=== PATIENT | female | born 1960 | race Caucasian/White ===

== ENCOUNTER 2019-01-27 22:27 | Inpatient (IN) | payer BC, OTHER ==
[2019-01-27] MEDS ORDERED: METOCLOPRAMIDE HCL INJECTION 10 MG/2 ML VIAL IVPB ONE (23:59)
[2019-01-27] MEDS ORDERED: ACETAMINOPHEN 1000 MG/100 ML VIAL (NON FORMULARY) IVPB ONE (23:59)
--- NOTE | 2019-01-28 00:07 | PDOC ---
History of Present Illness - General Chief Complaint: Nausea/Vomiting Stated Complaint: FEVER/VOMITING Time Seen by Provider: 01/27/19 23:52 History Source: Patient, Family Exam Limitations: No Limitations - History of Present Illness Initial Comments: 01/28/19 00:00 [id number] with HTN and HLD who p/w many episodes of NBNB vomiting and dry heaves ( states >20 episodes in the past 2 days, unable to keep anything down now), head- to-toe body aches, throbbing headache, vague abdominal pain, and mild burning on urination for the past 2 days. She states she had similar symptoms about 10 years ago and was diagnosed with a UTI. She initially believed she had eaten something rotten at a [employer], but nobody else got sick from eating this food. She additionally has been having subjective fever and sweats at home. She denies diarrhea, black/bloody/white stool, cough, SOB, chest pain, or other symptoms. Past History - Past Medical History Allergies/Adverse Reactions: Allergies Allergy/AdvReac Type Severity Reaction Status Date / Time No Known Allergies Allergy Verified 01/27/19 22:36 Home Medications: Ambulatory Orders Lisinopril 01/28/19 Simvastatin 01/28/19 COPD: No HTN: Yes Seizures: Yes - Suicide/Smoking/Psychosocial Hx Smoking History: Current every day smoker Have you smoked in the past 12 months: Yes Number of Cigarettes Smoked Daily: 10 Information on smoking cessation initiated: No Hx Alcohol Use: No Drug/Substance Use Hx: No Review of Systems - Review of Systems Able to Perform ROS?: Yes Comments:: 01/28/19 00:11 GEN: fever, chills, sweats, malaise, generalized weakness, no weight change HEENT: no ear pain, sore throat, vision change, or eye pain CV: no chest pain, palpitations, lightheadedness, syncope, or edema RESP: no cough, wheezing, or SOB GI: abdominal pain, nausea, vomiting, diarrhea, no constipation, or white/black/ bloody stool : dysuria, no hematuria, incontinence, retention, bleeding, or discharge MSK: no neck/back pain, muscle weakness/pain, or joint swelling/pain NEURO: headache, no seizure, vertigo, numbness, tingling, or focal weakness PSYCH: no substance use, no behavior change SKIN: no jaundice, no rash ROS otherwise negative except as noted in HPI *Physical Exam - Vital Signs Last Vital Signs Temp Pulse Resp BP Pulse Ox 98.3 F 100 H 19 143/99 100 01/27/19 22:34 01/27/19 22:34 01/27/19 22:34 01/27/19 22:34 01/27/19 22:34 - Physical Exam Comments: 01/28/19 00:12 GENERAL: a bit uncomfortable-appearing, A/Ox4, appears tired, answers questions appropriately, at bedside is supportive, emesis bag at side but not actively vomiting HEENT: PERRLA, EOMI, moist mucous membranes NECK/BACK: no midline ttp, no spinal stepoff or deformity, no hematoma, full ROM , neck supple CARDIOVASCULAR: regular rate/rhythm, normal S1S2, no MGR, strong peripheral pulses, capillary refill <2 seconds, extremities wwp, no edema LUNGS/RESPIRATORY: no respiratory distress, CTAB GI/ABDOMEN: symmetric [id number], normoactive BS, soft, no ttp, no midline pulsatile masses : no CVA tenderness EXTREMITIES: no muscle atrophy, no acute deformity SKIN: warm and dry, no pallor, no jaundice, no rash, no bruising, no skin breakdown, no cuts, no lesions NEUROLOGICAL: GCS 15, CN II-XII grossly intact, 5/5 strength proximally and distally, no facial droop Heart Score/ECG Review #1 01/28/19 00:17 Sinus rhythm, rate 89, normal axis, QTc 491, TAMELA in aVR, STD in II, III, aVF, and anterolateral leads ED Treatment Course - LABORATORY CBC & Chemistry Diagram: 01/28/19 00:40 01/28/19 00:40 Medical Decision Making - Medical Decision Making 01/28/19 00:08 Adult Pt p/w epigastric abdominal pain. Initial Vital Signs Temp Pulse Resp BP Pulse Ox 98.3 F 100 H 19 143/99 100 01/27/19 22:34 01/27/19 22:34 01/27/19 22:34 01/27/19 22:34 01/27/19 22:34 Exam: As noted in Physical Exam section. DDX IBNLT: most likely viral syndrome or influenza or UTI, less likely any other infectious etiology such as cholecystitis, choledocholithiasis, cholangitis, pancreatitis, appendicitis, gastritis, PUD, colitis, AAA/AD, ACS, renal stone, SBO, mesenteric/bowel ischemia, bowel perforation, constipation, gas, etc W/U ordered: Labs as noted below, EKG CXR TX ordered: David Ferraro [facility] 01/28/19 00:40 EKG actually appears concerning for ACS. ASA is ordered immediately, but RN states there is none in the ED, going to pharmacy to obtain. On probing the patient does note pain slightly increased in chest from 01/28/19 01:30 stated he is leaving the ED to go home and he will come back in the morning. I told him we still do not know the status of the patient's illness and whether or not she is having a serious cardiac event. He understands this and understands that she may end up being transferred to another facility or admitted. I have given him the ED phone number and he states he has given his own number to Dr. Dumont. Laboratory Tests 01/28/19 01/28/19 01/28/19 00:40 00:40 00:40 WBC 13.3 H RBC 5.96 H Hgb 16.6 H Hct 48.8 H MCV 81.8 MCH 27.9 MCHC 34.0 RDW 14.3 Plt Count 286 MPV 8.7 Absolute Neuts (auto) 10.5 H Neutrophils % 79.0 Lymphocytes % 12.7 Monocytes % 7.6 Eosinophils % 0.1 Basophils % 0.6 Nucleated RBC % 0 PT with INR INR Sodium 133 L Potassium 3.3 L Chloride 98 Carbon Dioxide 25 Anion Gap 10 BUN 17.8 Creatinine 0.6 Est GFR (CKD-EPI)AfAm 117.27 Est GFR (CKD-EPI)NonAf 101.18 Random Glucose 112 H Calcium 9.5 Phosphorus 2.5 Magnesium 2.3 Total Bilirubin 0.6 AST 12 L ALT 15 Alkaline Phosphatase 92 Troponin I 0.30 H Total Protein 7.9 Albumin 4.1 Influenza A (Rapid) Influenza B (Rapid) 01/28/19 01/28/19 00:40 00:40 WBC RBC Hgb Hct MCV MCH MCHC RDW Plt Count MPV Absolute Neuts (auto) Neutrophils % Lymphocytes % Monocytes % Eosinophils % Basophils % Nucleated RBC % PT with INR 12.40 INR 1.05 Sodium Potassium Chloride Carbon Dioxide Anion Gap BUN Creatinine Est GFR (CKD-EPI)AfAm Est GFR (CKD-EPI)NonAf Random Glucose Calcium Phosphorus Magnesium Total Bilirubin AST ALT Alkaline Phosphatase Troponin I Total Protein Albumin Influenza A (Rapid) Negative Influenza B (Rapid) Negative 01/28/19 01:53 Reassessment: Patient resting in ED stretcher with lights out. Cardiology on-call is paged at this time. 01/28/19 02:[address] Marquez on-call with Cardiology, transmitted EKG. Recommends getting second troponin, and if it is uptrending then tx with heparin. 01/28/19 02:24 The Pts symptoms persist despite ED treatments. The Pt is unsafe for discharge at this time. They require further hospital observation, workup, and treatment. Microblog sent to [facility] for admission. Blank Decision to Admit order is placed per ED protocol. Repeat EKG appears improved, repeat troponin not significantly elevated from initial. I spoke with Dr. Martínez with [facility]; patient admitted to Dr. Mccartney. Vital Signs Temperature 98.3 F 01/27/19 22:34 Pulse Rate 78 01/28/19 03:24 Respiratory Rate 12 01/28/19 03:24 Blood Pressure 152/94 01/28/19 03:24 O2 Sat by Pulse Oximetry (%) 99 01/28/19 03:24 *DC/Admit/Observation/Transfer Diagnosis at time of Disposition: Acute electrocardiogram changes, Elevated troponin, Flu-like symptoms - Discharge Dispostion Condition at time of disposition: Guarded Decision to Admit order: Yes - Referrals - Patient Instructions - Post Discharge Activity
--- NOTE | 2019-01-28 00:46 | PDOC ---
Attending Attestation - Resident Resident Name: Kimmie Westfall - ED Attending Attestation I have performed the following: I have examined & evaluated the patient, The case was reviewed & discussed with the resident, I agree w/resident's findings & plan, Exceptions are as noted - HPI HPI: 01/28/19 00:40 58 F with h/o HTN, HLD presenting to ED with 2 days of vomiting and diarrhea. Pt states that she felt ill shortly after dinner 2 nights ago. Endorses multiple episodes of nonbloody vomiting, as well as diarrhea. Pt endorses subjective fevers but no chills. Also complains of generalized bodyaches but denies any CP/SOB. Denies abdominal pain. - Physicial Exam PE: 01/28/19 00:46 GENERAL: Awake, alert, and fully oriented, in no acute distress. HEAD: No signs of trauma EYES: PERRLA, EOMI, sclera anicteric, conjunctiva clear ENT: Auricles normal inspection, hearing grossly normal, nares patent, oropharynx clear without exudates. Moist mucosa NECK: Nontender, no stepoffs, Normal ROM, supple, no lymphadenopathy, JVD, or masses LUNGS: Breath sounds equal, clear to auscultation bilaterally. No wheezes, and no crackles HEART: Regular rate and rhythm, normal S1 and S2, no murmurs, rubs or gallops ABDOMEN: Soft, nontender, normoactive bowel sounds. No guarding, no rebound. No masses EXTREMITIES: Normal range of motion, no edema. No clubbing or cyanosis. No cords, erythema, or tenderness NEUROLOGICAL: Cranial nerves II through XII intact. 5/5 strength and sensation in all extremities, Normal speech, normal gait, normal cerebellar function SKIN: Warm, Dry, normal turgor, no rashes or lesions noted. - Critical Care Time Total Critical Care Time: 60 Critical Care Statement: The care of this patient involved high complexity decision making to prevent further life threatening deterioration of the patient 's condition and/or to evaluate & treat vital organ system(s) failure or risk of failure. - Medical Decision Making 01/28/19 00:46 58 F with vomiting and diarrhea, as well as bodyaches. Clinically appears to have gastroenteritis. However, pt's EKG concerning for ischemia, with inferolateral ST depressions. Pt however denying any active chest pain at this time. - Labs, trop - CXR - IVF, GI cocktail - Aspirin 01/28/19 01:59 Trop 0.[address] Swenson consulted, recommends holding AC for now and repeating Trop.
[2019-01-28] MEDS ORDERED: ASPIRIN 81 MG CHEWABLE TABLETS PO ONE (00:49)
[2019-01-28 00:52] LABS: BASO % 0.6 % (0-2.0); EOS % 0.1 % (0-4.5); HEMATOCRIT 48.8 % (32.4-45.2); HEMOGLOBIN 16.6 GM/dL (10.7-15.3); LYMPH % 12.7 % (8-40); MCH 27.9 pg (25.7-33.7); MEAN CELL VOLUME 81.8 fl (80-96); MEAN PLT VOLUME 8.7 fl (7.5-11.1); MONO % 7.6 % (3.8-10.2); PLATELET COUNT 286 K/MM3 (134-434); RBC 5.96 M/mm3 (3.60-5.2); RDW 14.3 % (11.6-15.6); WHITE BLOOD COUNT 13.3 K/mm3 (4.0-10.0)
[2019-01-28] MEDS ORDERED: METOCLOPRAMIDE HCL INJECTION 10 MG/2 ML VIAL ONE (01:01)
[2019-01-28] MEDS ORDERED: ACETAMINOPHEN INJECTION 100 ML IVPB ONE ×2 (01:01→14:53)
[2019-01-28] MEDS ORDERED: ASPIRIN 81 MG CHEWABLE TABLETS ONE ×2 (01:01→15:26)
[2019-01-28 01:24] LABS: ALBUMIN 4.1 g/dl (3.4-5.0); BILIRUBIN,TOTAL 0.6 mg/dL (0.2-1); BLOOD UREA NITROGEN 17.8 mg/dL (7-18); CALCIUM 9.5 mg/dL (8.5-10.1); CREATININE 0.6 mg/dL (0.55-1.3); MAGNESIUM 2.3 mg/dL (1.8-2.4); PHOSPHOROUS 2.5 mg/dL (2.5-4.9); POTASSIUM 3.3 mmol/L (3.5-5.1); TOT PROT 7.9 g/dl (6.4-8.2)
[2019-01-28 01:28] LABS: INR 1.05 (0.83-1.09); PROTHROMBIN TIME (PATIENT) 12.4 SEC (9.7-13.0)
[2019-01-28] MEDS ORDERED: POTASSIUM CHLORIDE TABS 10 MEQ TABLET.ER (FP) PO ONE (02:24)
[2019-01-28] MEDS ORDERED: POTASSIUM CHLORIDE TABS 10 MEQ TABLET.ER (FP) ONE (02:30)
--- NOTE | 2019-01-28 02:45 | PN ---
Teaching Attending Note Name of Resident: Fidelia Martínez ATTENDING PHYSICIAN STATEMENT I saw and evaluated the patient. I reviewed the resident's note and discussed the case with the resident. I agree with the resident's findings and plan as documented. SUBJECTIVE: Patient is a 58 year old woman with PMH of HTN and HLD who presents with many episodes of NBNB vomiting and dry heaves (states >20 episodes in the past 2 days , unable to keep anything down now), head-to-toe body aches, throbbing headache , vague abdominal pain, and mild burning on urination for the past 2 days. She states she had similar symptoms about 10 years ago and was diagnosed with a UTI. She initially believed she had eaten something rotten at a graduation [employer] , but nobody else got sick from eating the food. She additionally has been having subjective fever and sweats at home. Denies alcohol abuse or illicit drug use. She denies diarrhea, black/bloody/white stool, cough, SOB, chest pain , or other symptoms. OBJECTIVE: Alert and weak Vital Signs Period Temp Pulse Resp BP Sys/Mcginnis Pulse Ox Last 24 Hr 98.3 F 100 19 143/99 100 HEENT: No Jaundice, eye redness or discharge, PERRLA, EOMI. Normocephalic, atraumatic. External ears are normal and hearing is grossly intact. No nasal discharge. Neck: Supple, nontender. No palpable adenopathy or thyromegaly. No JVD Chest: Good effort. Clear to auscultation and percussion. Heart: Regular. No S3, rub or murmur Abdomen: Not distended, soft, suprapubic tenderness and no HSM. No rebound or guarding. Normal bowel sounds. Ext: Peripheral pulses intact. No leg edema. Skin: Warm and dry. No petechiae, rash or ecchymosis. Neuro: Alert. Oriented x3. CN 2-12 grossly intact. Sensation grossly intact in all four extremities and DTR are symmetric. Psych: Appropriate mood and affect. Good insight. Abnormal Lab Results 01/28/19 01/28/19 01/28/19 00:40 00:40 00:40 WBC 13.3 H RBC 5.96 H Hgb 16.6 H Hct 48.8 H Absolute Neuts (auto) 10.5 H Sodium 133 L Potassium 3.3 L Random Glucose 112 H AST 12 L Troponin I 0.30 H Home Medications Medication Instructions Recorded Lisinopril 01/28/19 Simvastatin 01/28/19 ASSESSMENT AND PLAN: 1. Gastroenteritis/?NSTEMI - Etiology unclear. No more vomiting or diarrhea since arriving the ER. Still has nausea, but feeling better after initial therapy in the ER. In the ER she got Aspirin 324 mg po, IV Benadryl, Iv Reglan, IV NS and PO KCL. CXR shows hilar prominence but no infiltrates. Flu swab is negative. Hypokalemia likely associated with renal losses due to vomiting and mild hyponatremia likely due to volume loss from vomiting and SIADH from nausea. Will get serum Mg+, give IV KCL, IV NS and restrict free water intake to correct hyponatremia. Has proteinuria and hematuria - will monitor. Urine toxicology screen revealed benzodiazepines and marijuana. Will get CT abdomen/ pelvis with contrast. Does not have chest pain. Troponin is elevated and EKG shows NSR with ST depression in leads II, III, aVF, V3-V6. Being admitted to telemetry to trend troponin and monitor EKG. ER staff discussed case with surtass analyst and anticoagulation not recommended at this time. Will get ECHO and fasting lipids. 2. Hypertension - Restart suitable outpatient antihypertensive drugs when clinically appropriate. Revise regimen to ensure good BP control. Nonpharmacologic measures to control hypertension like weight loss, salt restriction and exercise discussed. 3. DVT prophylaxis - Lovenox 40 mg SQ q 24 hours. 4. Advance directives - Full code
--- NOTE | 2019-01-28 02:49 | HP ---
Admitting History and Physical - Primary Care Physician PCP: Dr Daniele Deluca ([facility]) - Admission Chief Complaint: Nausea, malaise x 3 days History of Present Illness: Pt is a 58 yo F with PMHx of HTN, HLD, hypothyroidism, anxiety, seasonal allergies, presenting from home with a 3 day hx of nausea/ vomiting and subjective fevers. Per pt she had a parmesian cheese meal at a new restaurant with her family earlier on Sunday then started to have n/v. She reports initially vomiting recently ingested foods and finally ending up with dry heaves up to 20 times. Since she has been in ED, she has not vomited (per pt has not eaten since Sunday). Pt reports not eating since Sunday night. On Sunday she had loose bowel movement of brown, non bloody stool up to 4 times on Sunday. Pt reports subjective fevers with diaphoresis and generalized malaise. She has dry cough (current everyday smoker). Pt also acknowledges dysuria. In the ED today she reported vague generalized body pains, without specific chest pain. She follows a PCP, never had vaccines, never had colonsocopy or mamography. Pt reports taking probably "lisinopril, simvastatin and levothyroxine" but does not know any dosages. EKG- 01/29/19, 0;17;46- Qwaves v1, v2, ST depression V3, v4, V5, v6, II, III, unclear 0.5mm TAMELA in avr- QTC-491 EKG-01/29/19-1:55:10- Q waves with flatteing of ST segment V1-v3, She is sexually active with her of 25 years and lives with her and teenage daughter. 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 No past surgical hx Menopause about 10years ago, no vaginal bleed. In ED: WBC- 13.3, H/H-16.6/48.8, Na-133, K-3.3 She recieved KCL 10meq PO initially in ED Received - History Source: Patient, Medical Record Limitations to Obtaining History: No Limitations - Past Medical History Cardiovascular: Yes: HTN - Smoking History Smoking history: Current every day smoker Have you smoked in the past 12 months: Yes Aproximately how many cigarettes per day: 10 - Alcohol/Substance Use Hx Alcohol Use: No Home Medications - Allergies Allergies/Adverse Reactions: Allergies Allergy/AdvReac Type Severity Reaction Status Date / Time No Known Allergies Allergy Verified 01/27/19 22:36 - Home Medications Home Medications: Ambulatory Orders Lisinopril 10 mg PO DAILY 01/28/19 Simvastatin 10 mg PO DAILY 01/28/19 Review of Systems - Review of Systems Constitutional: reports: Chills, Diaphoresis, Fever. denies: Unintentional Wgt. Loss Eyes: denies: Blurred Vision HENT: denies: Difficult Swallowing, Ear Pain Cardiovascular: denies: Chest Pain, Edema, Palpitations Respiratory: reports: Cough. denies: SOB Gastrointestinal: reports: Abdominal Pain, Diarrhea, Nausea, Vomiting. denies: Vomiting Blood Genitourinary: reports: Burning, Dysuria. denies: Discharge, Flank Pain, Frequency, Incontinence Musculoskeletal: denies: Back Pain Neurological: denies: Change in LOC, Change in Speech, Confusion, Syncope Psychiatric: reports: Anxiety Physical Examination Vital Signs: Vital Signs Temperature 98.3 F 01/27/19 22:34 Pulse Rate 100 H 01/27/19 22:34 Respiratory Rate 19 01/27/19 22:34 Blood Pressure 143/99 01/27/19 22:34 O2 Sat by Pulse Oximetry (%) 100 01/27/19 22:34 Constitutional: Yes: Well Nourished, No Distress, Calm Eyes: Yes: Conjunctiva Clear, EOM Intact, PERRL. No: Sclera Icterus HENT: Yes: Atraumatic. No: Drooling, Nasal Congestion, Pharyngeal Erythema Neck: Yes: Supple Cardiovascular: Yes: Regular Rate and Rhythm, S1, S2 Respiratory: Yes: CTA Bilaterally. No: Rales, Wheezes Gastrointestinal: Yes: Soft, Hyperactive Bowel Sounds, Tenderness (suprapubic) Renal/: No: CVA Tenderness - Left, CVA Tenderness - Right Edema: No Peripheral Pulses WNL: Yes Neurological: Yes: Alert, Oriented. No: Aphasia, Babinski positive, Confusion, Facial Droop, Lethargy, Numbness, Pre-Existing Deficit ...Motor Strength: WNL Psychiatric: Yes: Alert, Oriented Labs: CBC, BMP 01/28/19 00:40 01/28/19 00:40 Imaging - Results Chest X-ray: Image Reviewed Assessment/Plan Assessment/Plan: Pt is a 58 yo F with PMHx of HTN, HLD, hypothyroidism, anxiety, seasonal allergies, presenting from home with a 3 day hx of nausea/ vomiting and subjective fevers. #Elevated trops: 0.30>>0.31, continue to trend, pt may benefit from heparin drip Pt denies chest pain, describes generalized malaise Scattered TWI in v3-V6, II, III with flattened T in V1, V2, Repeat EKG in am ECHO fasting lipids HgbA1c #Hypokalemia Likely due to vomiting and diarrhea Received PO KCL 10meq 10meq iv x3 runs pending MgSO4- given Prolonged QTC, no torsades on EKG Repeat EKG #Hyponatremia Likely in setting of dehydration from poor PO intake, n/v/diarrhea Cont iv NS #Prolonged QTC Pt received multiple antiemetic in ED, pt with hypokalemia Ytox with benzos Avoid QTC prolonging meds Hold anti-emetics for now Repeat EKG Magnesium-2.3 magnesium sulphate 1g given in ED #Nausea/vomiting: Could be due to hyperemesis cannabinoid- pt positive for marijuana However with leucocytosis will go ahead and do CTabd/pelvis w/wo and PO contrast to R/O colitis Hx of diarrhea. could be gastroenteritis/food posioning, no one else reported ill Dysuria, Suprapubic tenderness, UA- negative, pending Ucx If positive for colitis will give antibiotic, Lipase pending #Cough R/O Legionella Smoker with Cough, and GI symptoms Legionella antigens pending CXR- no infiltrates, pt not dyspneic, but malaise #HTN Hx of HTN, pt unaware of BP meds Day team to follow up for medrec- per pt, can get the information #PolySubstance use Pt reports using xanax occasionally for anxiety, will need med rec Everyday smoker Nicotine patch Marijuana and benzos in utox #HLD Reports using simvastatin, unsure of dose #Anxiety disorder Pt reports using xanax intermittently, unsure of dose Requesting sleep meds- melatonin one dose given Tele admit NPO for now Iv NS @83 BMP, replete lytes as needed Visit type - Emergency Visit Emergency Visit: Yes ED Registration Date: 01/28/19 Care time: The patient presented to the Emergency Department on the above date and was hospitalized for further evaluation of their emergent condition. - New Patient This patient is new to me today: Yes Date on this admission: 01/28/19 - Critical Care Critical Care patient: No
[2019-01-28] MEDS ORDERED: SODIUM CHLORIDE 0.9% 500 ML INFUS.BAG IV ONE ×2 (03:02)
[2019-01-28] MEDS ORDERED: MAGNESIUM SULF 50% (8.12 MEQ/2 ML-1 GM VIAL) IVPB ONE (03:03)
[2019-01-28] MEDS ORDERED: POTASSIUM CHLORIDE 20 MEQ PREMIX IVPB 100 ML IVPB ONE (03:03)
[2019-01-28] MEDS ORDERED: MAGNESIUM 1GM/D5W - 1 GM/100 ML IVPB IVPB ONE (03:12)
[2019-01-28] MEDS ORDERED: KCL 10 MEQ IVPB 20 MEQ/200 ML INFUS.BAG IVPB ONE (03:13)
[2019-01-28] MEDS ORDERED: MELATONIN 5 MG TABLETS PO ONE (04:10)
[2019-01-28 04:15] LABS: EPI CELLS 16.6 /HPF (0-5/HPF); HYALINE CASTS 8 /lpf (0-8); PH,URINE 6.5 (5.0-8.0); URINE APPEARANCE CLEAR; URINE BACTERIA 323.5 /hpf (NEGATIVE); URINE BILIRUBIN NEGATIVE (NEGATIVE); URINE COLOR YELLOW; URINE GLUCOSE (UA) NEGATIVE (NEGATIVE); URINE KETONE 1+ (NEGATIVE); URINE LEUK ESTERASE TRACE (NEGATIVE); URINE NITRITE NEGATIVE (NEGATIVE); URINE PROTEIN 3+ (NEGATIVE); URINE RBC 8 /hpf (0-4); URINE UROBILINOGEN 0.2 mg/dL (0.2-1.0); URINE WBC 6 /hpf (0-5)
[2019-01-28] MEDS: KCL 10 MEQ IVPB 10 MEQ/100 ML INFUS.BAG IVPB SCH ×2 (04:43→06:02)
[2019-01-28 04:45] LABS: COCAINE, UR NEGATIVE ng/ml (CUTOFF=300); METHADONE, UR NEGATIVE ng/ml (CUTOFF=300); OPIATES, URI NEGATIVE ng/ml (CUTOFF=300); PHENCYCLIDINE,URINE NEGATIVE ng/ml (CUTOFF=25); URINE AMPHETAMINES NEGATIVE ng/ml (CUTOFF=500); URINE BARBITURATES NEGATIVE ng/ml (CUTOFF=200)
[2019-01-28] MEDS ORDERED: SODIUM CHLORIDE 1,000 ML IV SCH (04:45)
[2019-01-28 04:48] LABS: URINE BENZODIAZEPINES POSITIVE ng/ml (CUTOFF=200)
--- NOTE | 2019-01-28 09:45 | ECHO ---
Version: 1 Name: JANUARY WOODALL Exam: Adult Echocardiogram Study Date: 01/28/2019, 9:00 AM Age: 58 Years MMode/2D Measurements & Calculations IVSd: 1.08 cm LVIDs: 2.7 cm LVIDd: 3.8 cm LVPWd: 1.30 cm ACS: 1.83 cm LVOT diam: 1.97 cm Doppler Measurements & Calculations MV E max yossi: 75.0 cm/sec Med E/e': 8.3 MV A max yossi: 97.2 cm/sec Med Peak E' Yossi: 9.0 cm/sec MV E/A: 0.77 Lat E/e': 15.5 Lat Peak E' Yossi: 4.8 cm/sec Ao max P.7 mmHg LV V1 mean: 40.0 cm/sec Ao V2 max: 129.0 cm/sec LV V1 mean P.72 mmHg Left Ventricle The left ventricular size, thickness and function are normal. Right Ventricle The right ventricle is normal in size and function. Atria Normal left and right atrial size and function. Mitral Valve The mitral valve is grossly normal. There is trace mitral regurgitation. Tricuspid Valve The tricuspid valve is not well visualized, but is grossly normal. Aortic Valve Fibrocalcific changes to the aortic valve without aortic stenosis. Pulmonic Valve The pulmonic valve is not well seen, but is grossly normal. Great Vessels The aortic root is normal size. Pericardium/Pleura There is no pericardial effusion. Summary Statements The left ventricular size, thickness and function are normal The right ventricle is normal in size and function. Normal left and right atrial size and function. Fibrocalcific changes to the aortic valve without aortic stenosis Insufficient TR for PASP calculation EF 58% MD Jose Arango 01/28/2019, 8:44 AM Ordering Physician: Fidelia Martínez I Performed By: Viviana Moura
[2019-01-28] MEDS ORDERED: ASPIRIN 325 MG ENTERIC COATED TABLET (FP) PO SCH (10:00)
[2019-01-28 10:05] LABS: HEMATOCRIT 47.7 % (32.4-45.2); HEMOGLOBIN 15.9 GM/dL (10.7-15.3); MCH 27.6 pg (25.7-33.7); MCHC 33.3 g/dl (32.0-36.0); MEAN PLT VOLUME 8.7 fl (7.5-11.1); RBC 5.75 M/mm3 (3.60-5.2); RDW 14.2 % (11.6-15.6); WHITE BLOOD COUNT 12.5 K/mm3 (4.0-10.0)
[2019-01-28 10:21] LABS: INR 1.01 (0.83-1.09); PROTHROMBIN TIME (PATIENT) 11.9 SEC (9.7-13.0)
[2019-01-28 10:24] LABS: ACTIVATED PTT 31.9 SECONDS (25.2-36.5)
[2019-01-28 10:34] LABS: PLATELET COUNT 278 K/MM3 (134-434)
--- NOTE | 2019-01-28 10:34 | EKG ---
Test Reason : Blood Pressure : / mmHG Vent. Rate : 081 BPM Atrial Rate : 081 BPM P-R Int : 140 ms QRS Dur : 084 ms QT Int : 450 ms P-R-T Axes : 070 032 077 degrees QTc Int : 522 ms NORMAL SINUS RHYTHM LOW VOLTAGE QRS NONSPECIFIC ST ABNORMALITY PROLONGED QT ABNORMAL ECG WHEN COMPARED WITH ECG OF 28-JAN-2019 00:17, NO SIGNIFICANT CHANGE WAS FOUND Confirmed by Maikel Ha MD ([id number]) on 01/28/2019 10:34:08 AM Referred By: Confirmed By:Maikel Ha MD
--- NOTE | 2019-01-28 10:34 | EKG ---
Test Reason : Blood Pressure : / mmHG Vent. Rate : 089 BPM Atrial Rate : 089 BPM P-R Int : 134 ms QRS Dur : 086 ms QT Int : 404 ms P-R-T Axes : 075 023 083 degrees QTc Int : 491 ms NORMAL SINUS RHYTHM ST depression, consider subendocardial injury NONSPECIFIC T WAVE ABNORMALITY PROLONGED QT ABNORMAL ECG NO PREVIOUS ECGS AVAILABLE Confirmed by Maikel Ha MD ([id number]) on 01/28/2019 10:34:28 AM Referred By: Confirmed By:Maikel Ha MD
[2019-01-28 10:45] LABS: ALBUMIN 3.8 g/dl (3.4-5.0); BILIRUBIN,TOTAL 0.5 mg/dL (0.2-1); BLOOD UREA NITROGEN 9.2 mg/dL (7-18); CALCIUM 8.5 mg/dL (8.5-10.1); CREATININE 0.6 mg/dL (0.55-1.3); MAGNESIUM 2.4 mg/dL (1.8-2.4); POTASSIUM 3.8 mmol/L (3.5-5.1); TOT PROT 7.3 g/dl (6.4-8.2)
--- NOTE | 2019-01-28 12:06 | CON.CARD ---
Consult Consult Specialty:: Cardiology Referred by:: Hospitalist Reason for Consultation:: Cardiac evaluation - History of Present Illness Chief Complaint: Abnormal ECG. Nausea and vomiting History of Present Illness: Patient is a 58 year old female with underlying history of HTN, hypercholesterolemia, anxiety and hypothyroidism who presents with 3 days of nausea, vomiting and fever after a green party that she attended on Sunday. She also had some loose bowel movements. When she presented to ED, ECG revealed sinus rhythm with ST-T abnormalities in inferior and lateral leads. Troponin was elevated up to 0.31. She denies chest pain , SOB or palpitations. She denies paroxysmal nocturnal dyspnea or orthopnea. She denies fever or chills at this time. She says her GI symptoms improved. She denies nausea or vomiting at this time. She denies headache or lightheadedness. She complains of dry cough as she states that she has been a smoker (up to 1/2 to 1 ppd). She denies prior cardiac events. - History Source History Provided By: Patient, Family Member, Medical Record Limitations to Obtaining History: No Limitations - Past Medical History Cardio/Vascular: Yes: HTN, Hyperlipdemia - Alcohol/Substance Use Hx Alcohol Use: No - Smoking History Smoking history: Current every day smoker Have you smoked in the past 12 months: Yes Aproximately how many cigarettes per day: 10 Home Medications - Allergies Allergies/Adverse Reactions: Allergies Allergy/AdvReac Type Severity Reaction Status Date / Time No Known Allergies Allergy Verified 01/27/19 22:36 - Home Medications Home Medications: Ambulatory Orders Lisinopril 01/28/19 Simvastatin 01/28/19 Review of Systems - Review of Systems Constitutional: denies: Chills, Fever Cardiovascular: reports: Chest Pain. denies: Palpitations, Shortness of Breath Respiratory: reports: Cough. denies: Hemoptysis, Orthopnea, PND, SOB, SOB on Exertion Gastrointestinal: reports: Diarrhea, Nausea, Vomiting. denies: Abdominal Pain, Constipation, Melena, Rectal Bleeding Genitourinary: denies: Dysuria, Hematuria Neurological: denies: Dizziness, Headache, Seizure, Syncope Vital Signs: Vital Signs Temperature 98.5 F 01/28/19 11:25 Pulse Rate 74 01/28/19 11:25 Respiratory Rate 14 01/28/19 11:25 Blood Pressure 166/87 01/28/19 11:25 O2 Sat by Pulse Oximetry (%) 96 01/28/19 11:25 Eyes: Yes: PERRL HENT: Yes: Atraumatic Neck: Yes: Supple Respiratory: Yes: CTA Bilaterally Gastrointestinal: Yes: Normal Bowel Sounds, Soft. No: Tenderness Cardiovascular: Yes: Regular Rate and Rhythm JVD: No PMI: Non-Displaced Heart Sounds: Yes: S1, S2 Murmur: No: Systolic Murmur, Diastolic Murmur Edema: No - Other Data Labs, Other Data: CBC, BMP 01/28/19 09:40 01/28/19 09:40 INR, PTT INR 1.01 (0.83-1.09) 01/28/19 09:40 Troponin, BNP 01/28/19 01/28/19 01/28/19 00:40 02:30 06:52 Troponin I 0.30 H 0.31 H 0.25 H Sinus rhythm with ST-T abnormality in inferior and lateral leads, QT prolongation Echo: Report Reviewed Imaging - Results Chest X-ray: Report Reviewed (Unremarkable) Cat Scan: Report Reviewed (Abdominal CT unremarkable) EKG: Report Reviewed Problem List - Problems (1) HTN (hypertension) Code(s): I10 - ESSENTIAL (PRIMARY) HYPERTENSION (2) Hypercholesterolemia Code(s): E78.00 - PURE HYPERCHOLESTEROLEMIA, UNSPECIFIED (3) Elevated troponin Code(s): R74.8 - ABNORMAL LEVELS OF OTHER SERUM ENZYMES Assessment/Plan 1. Nausea and vomiting, etiology to be determined. ? viral illness 2. Leukocytosis ? sepsis 3. Chest pain syndrome with abnormal ECG abnormality suggests underlying CAD and demand ischemia 4. HTN 5. Hypercholesterolemia 6. QT prolongation PLAN: 1. Trend troponin and document peak 2. ECG 3. Echocardiography reviewed. Normal LV systolic function 4. Add beta chet - Lopressor 25 mg BID 5. Continue ACEI - Lisinopril 20 mg QD 6. Add ASA if not contraindicated 7. Statin therapy (Atorvastatin) and check fasting lipid panel 8. Consider Nuclear MPI (Pharmacological) Further plans are to follow Kashif Blackmon MD
[2019-01-28] MEDS: NICOTINE 14 MG/24 HOURS TOPICAL PATCH TD SCH (13:22)
[2019-01-28] MEDS ORDERED: ACETAMINOPHEN 1000 MG/100 ML VIAL (NON FORMULARY) IVPB ONE (14:29)
[2019-01-28] MEDS ORDERED: LISINOPRIL 20 MG TABLET (FP) ONE (15:26)
[2019-01-28] MEDS: LISINOPRIL 20 MG TABLET (FP) PO SCH (15:30)
[2019-01-28] MEDS: ASPIRIN COATED 81 MG TABLET.EC PO SCH (15:30)
--- NOTE | 2019-01-28 15:39 | PN ---
Physical Exam: SUBJECTIVE: Patient seen and examined at bedside. Pt denies vomiting,diarrhea. States she feels better but still has nausea and abd soreness. Denies chest pain , shortness of breath. OBJECTIVE: Vital Signs Temperature 98.5 F 01/28/19 11:25 Pulse Rate 74 01/28/19 11:25 Respiratory Rate 14 01/28/19 11:25 Blood Pressure 166/87 01/28/19 11:25 O2 Sat by Pulse Oximetry (%) 96 01/28/19 11:25 GENERAL: AAOx3. NAD. Comfortably in bed. HEENT: AT/NC. EOMI. Moist mucus membranes. NECK: Trachea midline, full range of motion, supple. LUNGS: CTA B/L. No wheezes, rhonchi, rales, noted. HEART: RRR. Normal S1, S2. No murmurs noted. ABDOMEN: Soft, NT/ND. +BS in all 4Qs. No masses, rebound tenderness, guarding noted. EXTREMITIES: 2+ pulses, warm, well-perfused, no edema. NEUROLOGICAL: Responds to commands. Normal speech. PSYCH: Normal mood, normal affect. SKIN: Warm, dry, normal turgor, no rashes or lesions noted CBCD WBC 12.5 K/mm3 (4.0-10.0) H 01/28/19 09:40 RBC 5.75 M/mm3 (3.60-5.2) H 01/28/19 09:40 Hgb 15.9 GM/dL (10.7-15.3) H 01/28/19 09:40 Hct 47.7 % (32.4-45.2) H 01/28/19 09:40 MCV 83.0 fl (80-96) 01/28/19 09:40 MCHC 33.3 g/dl (32.0-36.0) 01/28/19 09:40 RDW 14.2 % (11.6-15.6) 01/28/19 09:40 Plt Count 278 K/MM3 (134-434) 01/28/19 09:40 MPV 8.7 fl (7.5-11.1) 01/28/19 09:40 CMP Sodium 135 mmol/L (136-145) L 01/28/19 09:40 Potassium 3.8 mmol/L (3.5-5.1) 01/28/19 09:40 Chloride 102 mmol/L (98-107) 01/28/19 09:40 Carbon Dioxide 26 mmol/L (21-32) 01/28/19 09:40 Anion Gap 8 MMOL/L (8-16) 01/28/19 09:40 BUN 9.2 mg/dL (7-18) 01/28/19 09:40 Creatinine 0.6 mg/dL (0.55-1.3) 01/28/19 09:40 Calcium 8.5 mg/dL (8.5-10.1) 01/28/19 09:40 Total Bilirubin 0.5 mg/dL (0.2-1) 01/28/19 09:40 AST 13 U/L (15-37) L 01/28/19 09:40 ALT 14 U/L (13-61) 01/28/19 09:40 Alkaline Phosphatase 81 U/L (45-117) 01/28/19 09:40 Total Protein 7.3 g/dl (6.4-8.2) 01/28/19 09:40 Albumin 3.8 g/dl (3.4-5.0) 01/28/19 09:40 Active Medications Aspirin (Ecotrin -) 81 mg PO DAILY [facility] Last Admin: 01/28/19 15:30 Dose: 81 mg Atorvastatin Calcium (Lipitor -) 20 mg PO HS [facility] Enoxaparin Sodium (Lovenox -) 40 mg SQ DAILY [facility] Sodium Chloride (Normal Saline -) 1,000 mls @ 83 mls/hr IV ASDIR [facility] Stop: 01/29/19 16:48 Last Admin: 01/28/19 06:02 Dose: 83 mls/hr Lisinopril (Prinivil) 20 mg PO DAILY [facility] Last Admin: 01/28/19 15:30 Dose: 20 mg Metoprolol Tartrate (Lopressor -) 25 mg PO BID [facility] Nicotine (Nicoderm Patch -) 14 mg TD DAILY [facility] Last Admin: 01/28/19 13:22 Dose: 14 mg IMAGING: * CTAP: No evid of colitis or acute pathology within abd/pelvis. * Echo: LV size, thickness, and fxn are normal. RV is normal in size and function. Nl L and R atrial size and function. Fibrocalcific changes to the aortic valve changes without aortic stenosis. Insufficient TR for PASP calculation. EF 58%. ASSESSMENT/PLAN: 58F with PMHx of HTN, HLD, hypothyroidism, anxiety, seasonal allergies, presenting from home with a 3 day hx of nausea/ vomiting and subjective fevers. #Nausea/Vomiting; could be 2/2 gastroenteritis as symptoms began soon after eating food, however no other known individuals were affected with same symptoms vs. angina/cardiac-related etiology as an atypical presentation given pt's medical history (ie. HTN, HLD, significant smoking hx) -Will trial on CLD; NPO after midnight for stress test -Per cardio, will do Nuclear NPI stress, and start ASA 81, Lisinopril 20, Lipitor 20, ASA 81, Metoprolol 25 BID -Echo noted above #Troponinemia; 0.30 > 0.31 > 0.25 -Trops now peaked -could be 2/2 demand ischemia in setting of GI symptoms -Echo results noted above -F/u cardio recs #HTN. Uncontrolled; pt unable to danielle PO for several days -Per cardio, will start Lisinopril, Metoprolol #Polycythemia; may likely be due to dehydration. cont to trend. Will cont IVF #Hypokalemia; K+ 3.3 --> 3.8 -replete PRN #Ppx -Lovenox FEN -NS @ 83 -recheck lytes in AM (K+) -CLD; NPO after midnight for stress in AM Dispo -cont to monitor on med-surg Visit type - Emergency Visit Emergency Visit: Yes ED Registration Date: 01/28/19 Care time: The patient presented to the Emergency Department on the above date and was hospitalized for further evaluation of their emergent condition. - New Patient This patient is new to me today: Yes Date on this admission: 01/28/19 - Critical Care Critical Care patient: No
--- NOTE | 2019-01-28 15:44 | PN ---
Teaching Attending Note Name of Resident: Tessa Alexis ATTENDING PHYSICIAN STATEMENT I saw and evaluated the patient. I reviewed the resident's note and discussed the case with the resident. I agree with the resident's findings and plan as documented. SUBJECTIVE:c/o nausea but no more vomiting. states she is starting to have an appetite. never had CP. denies fever, chills, V/C/D never had symptoms in the past. +smoker. no family hx of heart disease OBJECTIVE: Last Vital Signs Temp Pulse Resp BP Pulse Ox 98.5 F 74 14 166/87 96 01/28/19 11:25 01/28/19 11:25 01/28/19 11:25 01/28/19 11:25 01/28/19 11:25 General pale, lethargic CV S1 S2 RRR no murmur/rub/gallop no chest wall tenderness Lungs CTA B/L no wheezing/rales/rhonchi Abdomen soft NT/ND normal BS no rebound or guarding ASSESSMENT AND PLAN: 58yo F with PMH HTN and dyslipidemia presented to the ER wtih persistent uncontrolled vomiting and found to have tropinemia 1. Nausea and vomiting- could be gastroenteritis however in setting of low tropinemia iwth ST depressions II III avL, V3-V5 could be anginal equivalent. as per cardio does not need to anticoagulate. troponin peaked at 0.31. will monitor on cardio. echo pending. prelim read on CT showing nothing acute. will f /u official read. trial on clear liquids once official read is back if negative. 2. Tropinemia- can be demand as pt found to have elevated BP in setting of severe dehydration. Trop peaked at 0.31. concern nausea and vomiting could be anginal equivalent. check echo. Will need ischemia eval. cardiac monitoring. start on asa, betablocker, acei and will switch statin to high intensity statin. cardio on board 3. HTN- uncontrolled. could be due to pain. medications adjusted as in above. will titrate as tolerated to optimize BP 4. Polycythemia- likely dehydration. will cont with IVF. monitor. consider heme w/u if persists 5. Hypokalemia- due to persistent vomiting. can add Kcl to IVF. monitor 6. DVT ppx- lovenox
--- NOTE | 2019-01-28 15:53 | EKG ---
Test Reason : Blood Pressure : / mmHG Vent. Rate : 077 BPM Atrial Rate : 077 BPM P-R Int : 138 ms QRS Dur : 088 ms QT Int : 426 ms P-R-T Axes : 075 034 125 degrees QTc Int : 482 ms NORMAL SINUS RHYTHM WITH SINUS ARRHYTHMIA PROLONGED QT ABNORMAL ECG WHEN COMPARED WITH ECG OF 28-JAN-2019 01:55, NONSPECIFIC T WAVE ABNORMALITY NOW EVIDENT IN INFERIOR LEADS T WAVE INVERSION MORE EVIDENT IN ANTERIOR LEADS Confirmed by MD YOSVANY, JAMISON ([id number]) on 01/28/2019 3:52:46 PM Referred By: Confirmed By:JAMISON BAR MD
[2019-01-28] MEDS ORDERED: ENOXAPARIN NA (PORCINE) 40 MG/0.4 ML DISP.SYRIN SQ ONE (17:03)
[2019-01-28] MEDS: ENOXAPARIN NA (PORCINE) 40 MG/0.4 ML DISP.SYRIN SQ SCH (17:07)
[2019-01-28] MEDS ORDERED: ATORVASTATIN CA 20 MG TABLET (FP) PO SCH (22:00)
[2019-01-28] MEDS ORDERED: METOPROLOL TARTRATE 25 MG TABLET (FP) PO SCH (22:00)
[2019-01-28] MEDS ORDERED: ACETAMINOPHEN 325 MG TABLET (FP) PO ONE (22:37)
[2019-01-29 07:50] LABS: ALBUMIN 3.5 g/dl (3.4-5.0); BILIRUBIN,TOTAL 0.7 mg/dL (0.2-1); BLOOD UREA NITROGEN 8.9 mg/dL (7-18); CALCIUM 8.6 mg/dL (8.5-10.1); CREATININE 0.5 mg/dL (0.55-1.3); POTASSIUM 3.2 mmol/L (3.5-5.1); TOT PROT 6.6 g/dl (6.4-8.2)
[2019-01-29 08:19] LABS: BASO % 0.2 % (0-2.0); EOS % 0.2 % (0-4.5); HEMATOCRIT 43.9 % (32.4-45.2); HEMOGLOBIN 15.2 GM/dL (10.7-15.3); LYMPH % 19.8 % (8-40); MCH 28.2 pg (25.7-33.7); MCHC 34.6 g/dl (32.0-36.0); MEAN CELL VOLUME 81.6 fl (80-96); MEAN PLT VOLUME 8.9 fl (7.5-11.1); MONO % 9.1 % (3.8-10.2); NEUT % 70.7 % (42.8-82.8); PLATELET COUNT 252 K/MM3 (134-434); RBC 5.38 M/mm3 (3.60-5.2); WHITE BLOOD COUNT 10.6 K/mm3 (4.0-10.0)
[2019-01-29] MEDS ORDERED: REGADENOSON 0.4 MG/5 ML PRE-FILLED SYRINGE IVPUSH ONE ×2 (09:30→10:07)
[2019-01-29] MEDS ORDERED: POTASSIUM CHLORIDE TABS 20 MEQ TABLET.ER (FP) PO ONE (10:30)
--- NOTE | 2019-01-29 10:37 | PN ---
Progress Note, Physician History of Present Illness: Nausea and emesis resolved, tolerated lunch, ambulates without angina or [place]. - Current Medication List Current Medications: Active Medications Aspirin (Ecotrin -) 81 mg PO DAILY [facility] Last Admin: 01/28/19 15:30 Dose: 81 mg Atorvastatin Calcium (Lipitor -) 20 mg PO HS [facility] Last Admin: 01/28/19 22:37 Dose: 20 mg Enoxaparin Sodium (Lovenox -) 40 mg SQ DAILY [facility] Last Admin: 01/28/19 17:07 Dose: 40 mg Lisinopril (Prinivil) 20 mg PO DAILY [facility] Last Admin: 01/28/19 15:30 Dose: 20 mg Metoprolol Tartrate (Lopressor -) 25 mg PO BID [facility] Last Admin: 01/28/19 22:37 Dose: 25 mg Nicotine (Nicoderm Patch -) 14 mg TD DAILY [facility] Last Admin: 01/28/19 13:22 Dose: 14 mg - Objective Vital Signs: Vital Signs Temperature 97.8 F 01/29/19 05:58 Pulse Rate 70 01/29/19 05:58 Respiratory Rate 20 01/29/19 05:58 Blood Pressure 148/80 01/29/19 05:58 O2 Sat by Pulse Oximetry (%) 97 01/28/19 23:00 Constitutional: Yes: No Distress, Calm Neck: Yes: Supple Cardiovascular: Yes: Regular Rate and Rhythm Respiratory: Yes: Regular, CTA Bilaterally Gastrointestinal: Yes: Normal Bowel Sounds, Soft Edema: No Labs: CBC, BMP 01/29/19 06:53 01/29/19 06:53 INR, PTT INR 1.01 (0.83-1.09) 01/28/19 09:40 Problem List - Problems (1) Abnormal myocardial perfusion study Code(s): R94.39 - ABNORMAL RESULT OF OTHER CARDIOVASCULAR FUNCTION STUDY (2) HTN (hypertension) Code(s): I10 - ESSENTIAL (PRIMARY) HYPERTENSION Qualifiers: Hypertension type: essential hypertension Qualified Code(s): I10 - Essential (primary) hypertension (3) Hypercholesterolemia Code(s): E78.00 - PURE HYPERCHOLESTEROLEMIA, UNSPECIFIED (4) Elevated troponin Code(s): R74.8 - ABNORMAL LEVELS OF OTHER SERUM ENZYMES Assessment/Plan 01/28/2019 Echo: Normal LV and RV size and fxn, normal biatrial sizes, LVEF 58% 01/29/2019 Nuclear MPI (Pharmacological) shows moderate size, moderate intensity inferior ischemia LVEF 59% 1. Nausea and vomiting, leukocytosis etiology to be determined. ? viral illness 2. Chest pain syndrome with abnormal ECG abnormality suggests underlying CAD, demand ischemia and abnormal MPI 3. HTN 4. Hypercholesterolemia 5. QT prolongation resolved PLAN: 1. Troponins are downtrending 2. Echocardiography reviewed. Normal LV systolic function 3. Continue Lopressor 25 mg BID, Lisinopril 20 mg QD, ASA 81 qd and Lipitor 20 qhs 4. Outpatient cardiology f/u , can discuss [facility] risks and benefits then. 5. Thank you for consultative opportunity
--- NOTE | 2019-01-29 12:03 | PN ---
Teaching Attending Note Name of Resident: Tessa Alexis ATTENDING PHYSICIAN STATEMENT I saw and evaluated the patient. I reviewed the resident's note and discussed the case with the resident. I agree with the resident's findings and plan as documented. SUBJECTIVE:feeing better. tolerating diet. no episodes of CP. denies Cp, SOB, fever, chills, N/V/C/D OBJECTIVE: Last Vital Signs Temp Pulse Resp BP Pulse Ox 97.8 F 70 20 148/80 97 01/29/19 05:58 01/29/19 05:58 01/29/19 05:58 01/29/19 05:58 01/28/19 23:00 General NAD ASSESSMENT AND PLAN: 58yo F with PMH HTN and dyslipidemia presented to the ER wtih persistent uncontrolled vomiting and found to have tropinemia 1. Nausea and vomiting- could be gastroenteritis. now resolved. tolerating diet. official CT was negative for any signs of colitis. 2. Tropinemia- can be demand as pt found to have elevated BP in setting of severe dehydration. Trop peaked at 0.31. echo with no WMA. NMST done, awaiting results. on asa, betablocker, acei, statin. cardio on board 3. HTN- improved. titrate to optimize meds. 4. Polycythemia- likely dehydration. resolved 5. Hypokalemia- due to persistent vomiting. resolved 6. DVT ppx- lovenox 7. d/c home pending results of NMST
[2019-01-29] MEDS: ASPIRIN COATED 81 MG TABLET.EC PO SCH (12:23)
[2019-01-29] MEDS: NICOTINE 14 MG/24 HOURS TOPICAL PATCH TD SCH (12:24)
[2019-01-29] MEDS: ENOXAPARIN NA (PORCINE) 40 MG/0.4 ML DISP.SYRIN SQ SCH (12:24)
[2019-01-29] MEDS: LISINOPRIL 20 MG TABLET (FP) PO SCH (12:25)
[2019-01-29] MEDS ORDERED: FLUoxetine HCL 20 MG CAPSULE (FP) PO SCH (15:00)
--- NOTE | 2019-01-29 15:08 | EKG ---
Test Reason : Blood Pressure : / mmHG Vent. Rate : 077 BPM Atrial Rate : 077 BPM P-R Int : 134 ms QRS Dur : 094 ms QT Int : 462 ms P-R-T Axes : 076 060 141 degrees QTc Int : 522 ms NORMAL SINUS RHYTHM LOW VOLTAGE QRS PROLONGED QT ABNORMAL ECG WHEN COMPARED WITH ECG OF 28-JAN-2019 15:04, INVERTED T WAVES HAVE REPLACED NONSPECIFIC T WAVE ABNORMALITY IN LATERAL LEADS Confirmed by GLORIA GIANG, MANA ([id number]) on 01/29/2019 3:08:31 PM Referred By: Vera GATES Confirmed By:MANA CASTRO MD
[2019-01-29 15:23] VITALS: BP 130/75; PULSE 77; TEMP 98
--- NOTE | 2019-01-29 15:50 | PN ---
Physical Exam: SUBJECTIVE: Patient seen and examined at bedside. No acute events overnight. Pt denies f/c, n/v, cp, sob, abd pain, urinary/bowel symptoms. States she feels good and slept well. OBJECTIVE: Vital Signs Temperature 98 F 01/29/19 14:00 Pulse Rate 77 01/29/19 14:00 Respiratory Rate 20 01/29/19 14:00 Blood Pressure 130/75 01/29/19 14:00 O2 Sat by Pulse Oximetry (%) 98 01/29/19 09:00 GENERAL: AAOx3. NAD. Comfortably in bed. HEENT: AT/NC. EOMI. Moist mucus membranes. NECK: Trachea midline, full range of motion, supple. LUNGS: CTA B/L. No wheezes, rhonchi, rales, noted. HEART: RRR. Normal S1, S2. No murmurs noted. ABDOMEN: Soft, NT/ND. +BS in all 4Qs. No masses, rebound tenderness, guarding noted. EXTREMITIES: 2+ pulses, warm, well-perfused, no edema. NEUROLOGICAL: Responds to commands. Normal speech. PSYCH: Normal mood, normal affect. SKIN: Warm, dry, normal turgor, no rashes or lesions noted CBCD WBC 10.6 K/mm3 (4.0-10.0) H 01/29/19 06:53 RBC 5.38 M/mm3 (3.60-5.2) H 01/29/19 06:53 Hgb 15.2 GM/dL (10.7-15.3) 01/29/19 06:53 Hct 43.9 % (32.4-45.2) 01/29/19 06:53 MCV 81.6 fl (80-96) 01/29/19 06:53 MCHC 34.6 g/dl (32.0-36.0) 01/29/19 06:53 RDW 14.0 % (11.6-15.6) 01/29/19 06:53 Plt Count 252 K/MM3 (134-434) 01/29/19 06:53 MPV 8.9 fl (7.5-11.1) 01/29/19 06:53 CMP Sodium 134 mmol/L (136-145) L 01/29/19 06:53 Potassium 3.2 mmol/L (3.5-5.1) L 01/29/19 06:53 Chloride 102 mmol/L (98-107) 01/29/19 06:53 Carbon Dioxide 24 mmol/L (21-32) 01/29/19 06:53 Anion Gap 8 MMOL/L (8-16) 01/29/19 06:53 BUN 8.9 mg/dL (7-18) 01/29/19 06:53 Creatinine 0.5 mg/dL (0.55-1.3) L 01/29/19 06:53 Calcium 8.6 mg/dL (8.5-10.1) 01/29/19 06:53 Total Bilirubin 0.7 mg/dL (0.2-1) 01/29/19 06:53 AST 12 U/L (15-37) L 01/29/19 06:53 ALT 13 U/L (13-61) 01/29/19 06:53 Alkaline Phosphatase 73 U/L (45-117) 01/29/19 06:53 Total Protein 6.6 g/dl (6.4-8.2) 01/29/19 06:53 Albumin 3.5 g/dl (3.4-5.0) 01/29/19 06:53 Active Medications Aspirin (Ecotrin -) 81 mg PO DAILY [facility] Last Admin: 01/29/19 12:23 Dose: 81 mg Atorvastatin Calcium (Lipitor -) 20 mg PO HS [facility] Last Admin: 01/28/19 22:37 Dose: 20 mg Enoxaparin Sodium (Lovenox -) 40 mg SQ DAILY [facility] Last Admin: 01/29/19 12:24 Dose: 40 mg Fluoxetine HCl (Prozac -) 40 mg PO DAILY [facility] Last Admin: 01/29/19 15:24 Dose: 40 mg Levothyroxine Sodium (Synthroid -) 100 mcg PO AM [facility] Lisinopril (Prinivil) 20 mg PO DAILY [facility] Last Admin: 01/29/19 12:25 Dose: 20 mg Metoprolol Tartrate (Lopressor -) 25 mg PO BID [facility] Last Admin: 01/28/19 22:37 Dose: 25 mg Nicotine (Nicoderm Patch -) 14 mg TD DAILY [facility] Last Admin: 01/29/19 12:24 Dose: 14 mg IMAGING: * CTAP: No evid of colitis or acute pathology within abd/pelvis. * Echo: LV size, thickness, and fxn are normal. RV is normal in size and function. Nl L and R atrial size and function. Fibrocalcific changes to the aortic valve changes without aortic stenosis. Insufficient TR for PASP calculation. EF 58%. * Exercise/Nuclear Stress: Exercise- Baseline EKG showed normal sinus rhythm inverted T waves in leads V2 to V6. At peak strses there were no ischemic symptoms no diagnostic ST-T wave changes no arrhythmias. Nuclear- Moderately sized moderate intensity inferior wall reversible perfusion defect c/w ischemia. Normal EF 59%. Transient ischemic dilation ratio 1.38. ASSESSMENT/PLAN: 58F with PMHx of HTN, HLD, hypothyroidism, anxiety, seasonal allergies, presenting from home with a 3 day hx of nausea/ vomiting and subjective fevers. #Nausea/Vomiting; Resolved. Could be 2/2 gastroenteritis as symptoms began soon after eating food, however no other known individuals were affected with same symptoms vs. angina/cardiac-related etiology as an atypical presentation given pt's medical history (ie. HTN, HLD, significant smoking hx) -Advance diet to sodium-controlled diet -Per cardio, start ASA 81, Lisinopril 20, Lipitor 20, ASA 81, Metoprolol 25 BID -Echo noted above -Stress results noted above; await cardio recs if further intervention needed #Troponinemia; 0.30 > 0.31 > 0.25 > 0.09. Trops now stable. -could be 2/2 demand ischemia in setting of GI symptoms -Echo results noted above -F/u cardio recs #HTN. Improved, today 130/75 -Per cardio, will cont Lisinopril 20 QD, Metoprolol 25 BID #Hypothyroidism; Cont home med: Synthroid 100 mcg QD #Nicotine Dependence; cont Nicotine patch #Polycythemia; may likely be due to dehydration. cont to trend. Will cont IVF #Hypokalemia; K+ 3.2 -replete PRN; K-Dur x1 given today -trend BMP #Ppx -Lovenox FEN -PO hydration -recheck lytes in AM (K+) -Sodium-controlled diet Dispo -cont to monitor on med-surg Visit type - Emergency Visit Emergency Visit: Yes ED Registration Date: 01/28/19 Care time: The patient presented to the Emergency Department on the above date and was hospitalized for further evaluation of their emergent condition. - New Patient This patient is new to me today: No - Critical Care Critical Care patient: No
[2019-01-29 16:38] VITALS: BMI 24.3
--- NOTE | 2019-01-29 16:39 | DS ---
Physical Exam: SUBJECTIVE: Patient seen and examined at bedside. No acute events overnight. OBJECTIVE: Vital Signs Temperature 98 F 01/29/19 14:00 Pulse Rate 77 01/29/19 14:00 Respiratory Rate 20 01/29/19 14:00 Blood Pressure 130/75 01/29/19 14:00 O2 Sat by Pulse Oximetry (%) 98 01/29/19 09:00 PHYSICAL EXAM GENERAL: AAOx3. NAD. Comfortably in bed. HEENT: AT/NC. EOMI. Moist mucus membranes. NECK: Trachea midline, full range of motion, supple. LUNGS: CTA B/L. No wheezes, rhonchi, rales, noted. HEART: RRR. Normal S1, S2. No murmurs noted. ABDOMEN: Soft, NT/ND. +BS in all 4Qs. No masses, rebound tenderness, guarding noted. EXTREMITIES: 2+ pulses, warm, well-perfused, no edema. NEUROLOGICAL: Responds to commands. Normal speech. PSYCH: Normal mood, normal affect. SKIN: Warm, dry, normal turgor, no rashes or lesions noted LABS Laboratory Results - last 24 hr 01/29/19 01/29/19 06:53 06:53 WBC 10.6 H RBC 5.38 H Hgb 15.2 Hct 43.9 MCV 81.6 MCH 28.2 MCHC 34.6 RDW 14.0 Plt Count 252 MPV 8.9 Absolute Neuts (auto) 7.5 Neutrophils % 70.7 Lymphocytes % 19.8 D Monocytes % 9.1 Eosinophils % 0.2 D Basophils % 0.2 Nucleated RBC % 0 Sodium 134 L Potassium 3.2 L Chloride 102 Carbon Dioxide 24 Anion Gap 8 BUN 8.9 Creatinine 0.5 L Est GFR (CKD-EPI)AfAm 124.52 Est GFR (CKD-EPI)NonAf 107.44 Random Glucose 95 Calcium 8.6 Total Bilirubin 0.7 AST 12 L ALT 13 Alkaline Phosphatase 73 Creatine Kinase 63 Troponin I 0.09 H Total Protein 6.6 Albumin 3.5 TSH 9.11 H Free T4 0.83 HOSPITAL COURSE: Date of Admission:01/28/19 IMAGING: * CTAP: No evid of colitis or acute pathology within abd/pelvis. * Echo: LV size, thickness, and fxn are normal. RV is normal in size and function. Nl L and R atrial size and function. Fibrocalcific changes to the aortic valve changes without aortic stenosis. Insufficient TR for PASP calculation. EF 58%. * Exercise/Nuclear Stress: Exercise- Baseline EKG showed normal sinus rhythm inverted T waves in leads V2 to V6. At peak stress there were no ischemic symptoms no diagnostic ST-T wave changes no arrhythmias. Nuclear- Moderately sized moderate intensity inferior wall reversible perfusion defect c/w ischemia. Normal EF 59%. Transient ischemic dilation ratio 1.38. 58F with PMHx of HTN, HLD, hypothyroidism, anxiety, seasonal allergies, presenting from home with a 3 day hx of nausea/vomiting and subjective fevers. CTAP was done that did not show evidence of acute intra-abd pathology or colitis. Initial lab work showed hypokalemia and elevated trops. Pt was given K- dur PRN for potassium repletion. She was initially placed on bowel rest as well. Cardio was consulted with no need to start AC. Echo was done that showed LV size, thickness, and fxn are normal, RV is normal in size and function, normal L and R atrial size and function; fibrocalcific changes to the aortic valve changes without aortic stenosis; insufficient TR for PASP calculation and EF 58%. Pt subsequently underwent nuclear/exercise stress echo, results noted above. Throughout her hospital stay, she was started on increased dose of statin , and ACEi as well as Metoprolol and ASA per cardio recommendations. Per cardio , pt was recommended to have a left heart catheterization done as an outpatient given results of stress test. Throughout the entire duration of hospital stay, pt remained asymptomatic with no vomiting episodes or chest complaints. Diet was advanced and was well-tolerated by pt. She was advised to follow up with her PCP and ceramic designer for routine outpatient evaluation. She was also advised to continue taking statin, ACEi, Metoprolol, and ASA. Date of Discharge: 01/29/19 Minutes to complete discharge: 35 Discharge Summary Reason For Visit: INFLUENZA-LIKE SYMPTOMS, ELEVATED TROPONIN LEVEL Current Active Problems Abnormal myocardial perfusion study (Acute) HTN (hypertension) (Chronic) Hypercholesterolemia (Chronic) Condition: Improved - Instructions Diet, Activity, Other Instructions: You were seen in the hospital for complaints of persistent nausea and vomiting. CT imaging of your abdomen was done that did not show any acute condition. Lab work showed elevated cardiac enzymes after which you were evaluated by the ceramic designer. An echocardiogram (ultrasound of the heart) was done that showed normal heart function. During your hospital visit, you underwent a stress test that showed ischemic changes. Throughout your admission, your symptoms improved. You are being discharged home. MEDICATIONS We have made the following additions to your medication regimen: Please STOP taking Lisinopril 10 mg. We have increased your dose for this medication. Please START taking Lisinopril 20 mg once a day by mouth for blood pressure. Please STOP taking Simvastatin 10 mg. We recommend that you take a higher intensity cholesterol medication. Please START taking Atorvastatin 20 mg once a day by mouth. Please START taking Aspirin 81 mg once a day by mouth. Please START taking Lopressor 25 mg twice a day by mouth. You may continue taking the rest of your home medications as prescribed. FOLLOW UP Please follow up with your primary care physician, Dr. Augustin, within 1 week. You were noted to have elevated TSH value. You should have this repeated in 6 weeks to see if you need to be started on medications. Please follow up with your ceramic designer, Dr. Kashif Blackmon for further cardiac evaluation. You will need a left heart catheterization given your stress test findings, but this can be done in the outpatient setting. If you experience persistent and worsening chest pain, nausea/vomiting, shortness of breath, difficulty breathing or other associated symptoms, please proceed to your nearest emergency room immediately. Referrals: MD Demetria [Other] - 1 Week Kashif Blackmon MD [Staff Physician] - 1 Week Disposition: HOME - Home Medications Comprehensive Discharge Medication List: Ambulatory Orders Aspirin Coated [Ecotrin -] 81 mg PO DAILY #30 tablet.ec 01/29/19 Atorvastatin Ca [Lipitor] 20 mg PO HS #30 tablet 01/29/19 Fluoxetine HCl [Prozac] 40 mg PO DAILY 01/29/19 Levothyroxine [Synthroid -] 100 mcg PO DAILY 01/29/19 Lisinopril [Prinivil] 20 mg PO DAILY #30 tablet 01/29/19 Metoprolol Tartrate [Lopressor -] 25 mg PO BID #30 tablet 01/29/19 This patient is new to me today: No Emergency Visit: Yes ED Registration Date: 01/28/19 Care time: The patient presented to the Emergency Department on the above date and was hospitalized for further evaluation of their emergent condition. Critical Care patient: No - Discharge Referral Referred to [facility] No
[2019-01-30] MEDS ORDERED: LEVOTHYROXINE NA 100 MCG TABLET (FP) PO SCH (07:00)
== END 2019-01-29 17:05 | disposition home or self-care (01) | DRG 153 ==
LOC: JER 22:27 → JERBED 01-28 02:24 → J4W 01-28 22:20
PROVIDERS: ADMIT Internal Medicine; ATTEND Internal Medicine
DX: J11.1 Influenza due to unidentified influenza virus with other respiratory manifestations (principal); I24.8 Other forms of acute ischemic heart disease; I10 Essential (primary) hypertension; E78.5 Hyperlipidemia, unspecified; F17.210 Nicotine dependence, cigarettes, uncomplicated; E87.6 Hypokalemia; E86.0 Dehydration; I45.81 Long QT syndrome; F12.10 Cannabis abuse, uncomplicated; F41.9 Anxiety disorder, unspecified; I25.10 Atherosclerotic heart disease of native coronary artery without angina pectoris; D75.1 Secondary polycythemia
CPT/HCPCS: 36415; 71045-TC-FY; 74178-TC; 78452-TC; 80053; 80061; 80307; 81003; 82550; 83690; 83721; 83735; 84100; 84439; 84443; 84481; 84484; 85025; 85027; 85610; 85730; 87086; 87804; 87899; 93005; 93010; 93017; 93306-TC; 99283-25; A9502; J0131; J2785; J7030

== ENCOUNTER 2019-08-14 11:18 | Inpatient (IN) | payer BC, OTHER ==
[2019-08-14 11:22] VITALS: BMI 24.3
--- NOTE | 2019-08-14 11:34 | PDOC ---
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 There, she was found to have prolonged QTc and ST depressions laterally, deeper when compared to prior. She initially presented with vomiting/inability to keep down fluids, abdominal pain, and malaise since yesterday. These symptoms are reminiscent of her admission here in January. She was seen in Urgent Care yesterday and told her flu was negative and her EKG was abnormal. She denies chest pain and shortness of breath. Of note, she has had dental pain for two weeks. PCP: Pretty ([facility]) Hat Binder: Dr Childs (saw Dr. Smith today) REVIEW OF SYSTEMS: GENERAL/CONSTITUTIONAL: Generalized weakness, malaise. No fever or chills. No weight change. HEAD, EYES, EARS, NOSE AND THROAT: No change in vision. No ear pain or discharge. No sore throat. CARDIOVASCULAR: No chest pain or palpitations. RESPIRATORY: No cough, wheezing, or shortness of breath. GASTROINTESTINAL: See HPI. GENITOURINARY: No dysuria, frequency, or change in urination. MUSCULOSKELETAL: No joint or muscle swelling or pain. No neck or back pain. SKIN: No rash or easy bruising. NEUROLOGIC: No headache, vertigo, loss of consciousness, or loss of sensation. PSYCHIATRIC: Anxiety, on maintenance medication, no active issues. ENDOCRINE: No increased thirst. No abnormal weight change. HEMATOLOGIC/LYMPHATIC: No anemia, easy bleeding, or history of blood clots. ALLERGIC/IMMUNOLOGIC: No hives or skin allergy. No latex allergy. PHYSICAL EXAM: GENERAL: The patient is awake, alert, appears weak, needs assistance to walk. HEAD: Normal with no signs of trauma. ENT: Dry mucous membranes. No dental abscess or obvious infection noted. Pupils equal, round and reactive to light, extraocular movements intact, sclera anicteric, conjunctiva clear. Neck supple. LUNGS: Clear to auscultation bilaterally. Normal excursion. No respiratory distress or use of accessory muscles. CV: RRR, S1/S2, no MRG. Cap refill < 2 sec. ABDOMEN: Soft, non-distended, mildly tender in RUQ without guarding or rebound tenderness. EXTREMITIES: Normal range of motion, no edema. NEUROLOGICAL: Normal speech, normal gait with assistance. CN II-XII grossly intact. PSYCH: Normal mood, normal affect. SKIN: Flushed, dry, normal turgor, no rashes or lesions noted. Past History - Past Medical History Allergies/Adverse Reactions: Allergies Allergy/AdvReac Type Severity Reaction Status Date / Time No Known Allergies Allergy Verified 08/14/19 11:22 Home Medications: Ambulatory Orders Aspirin Coated [Ecotrin -] 81 mg PO DAILY #30 tablet.ec 01/29/19 Atorvastatin Ca [Lipitor] 20 mg PO HS #30 tablet 01/29/19 Fluoxetine HCl [Prozac] 40 mg PO DAILY 01/29/19 Levothyroxine [Synthroid -] 100 mcg PO DAILY 01/29/19 Lisinopril [Prinivil] 20 mg PO DAILY #30 tablet 01/29/19 Metoprolol Tartrate [Lopressor -] 25 mg PO BID #30 tablet 01/29/19 Anemia: No Asthma: No COPD: No HTN: Yes Hypercholesterolemia: Yes Seizures: Yes - Psycho Social/Smoking Cessation Hx Smoking History: Current every day smoker Have you smoked in the past 12 months: Yes Number of Cigarettes Smoked Daily: 5 Information on smoking cessation initiated: No 'Breaking Loose' booklet given: 01/29/19 Hx Alcohol Use: No Drug/Substance Use Hx: No *Physical Exam - Vital Signs Last Vital Signs Temp Pulse Resp BP Pulse Ox 98 F 75 18 148/86 98 08/14/19 11:19 08/14/19 11:19 08/14/19 11:19 08/14/19 11:19 08/14/19 11:19 ED Treatment Course - LABORATORY CBC & Chemistry Diagram: 08/14/19 12:03 08/14/19 11:49 Medical Decision Making - Medical Decision Making 08/14/19 12:36 A/P: 59-year-old female with malaise, weakness, vomiting, and abnormal EKG. Discussed with talent acquisition relationship manager, recommends admission for r/o ACS as well as infectious etiology of symptoms. -EKG repeated: NSR with marked sinus arrhythmia, prolonged QTc at 538 ms, ST depressions laterally - placed on environmental monitoring technician -Cardiac labs, lipase, TSH, UA -Zofran 4mg IVP for nausea, NS 1L for hydration -RUQ u/s r/o cholecystitis -CXR -Cardiology eval 08/14/19 13:17 Flu neg Labs notable for WBC 21 Echo and blood cx added on r/o endocarditis considering dental infection, high WBC, systemic symptoms 08/14/19 13:49 Gallbladder u/s negative. Troponin 1.11. Discussed with Dr. Childs: recommends against heparin for now. Will give aspirin. Will pursue abdominal pain/leukocytosis with CT abdomen pelvis. Will admit to telemetry. Accepted to hospitalist service by Dr Carranza/Ar. Discharge - Discharge Information Problems reviewed: Yes Clinical Impression/Diagnosis: Abdominal pain, Leukocytosis, Elevated troponin I level, Abnormal EKG Condition: Guarded - Admission Yes - Follow up/Referral Referrals: Daniele Olsen [Primary Care Provider] - - Patient Discharge Instructions - Post Discharge Activity
[2019-08-14] MEDS ORDERED: ONDANSETRON 4 MG/2 ML VIAL IVPUSH ONE (11:46)
[2019-08-14] MEDS ORDERED: SODIUM CHLORIDE 1,000 ML IV STA (11:46)
[2019-08-14] MEDS ORDERED: ONDANSETRON 4 MG/2 ML VIAL ONE (11:50)
[2019-08-14 12:49] LABS: BASO % 0.2 % (0-2.0); HEMATOCRIT 47.4 % (32.4-45.2); HEMOGLOBIN 15.9 GM/dL (10.7-15.3); LYMPH % 6.7 % (8-40); MCH 28.2 pg (25.7-33.7); MCHC 33.6 g/dl (32.0-36.0); MEAN CELL VOLUME 84.1 fl (80-96); MEAN PLT VOLUME 9.4 fl (7.5-11.1); MONO % 6.8 % (3.8-10.2); NEUT % 86.3 % (42.8-82.8); PLATELET COUNT 308 K/MM3 (134-434); RBC 5.64 M/mm3 (3.60-5.2); RDW 13.9 % (11.6-15.6)
[2019-08-14 13:13] LABS: INR 1.03 (0.83-1.09); PROTHROMBIN TIME (PATIENT) 12.2 SEC (9.7-13.0)
[2019-08-14 13:23] LABS: ALBUMIN 4.5 g/dl (3.4-5.0); BILIRUBIN,TOTAL 0.7 mg/dL (0.2-1); BLOOD UREA NITROGEN 13.4 mg/dL (7-18); CALCIUM 10.1 mg/dL (8.5-10.1); CREATININE 0.6 mg/dL (0.55-1.3); POTASSIUM 3.9 mmol/L (3.5-5.1); TOT PROT 8.4 g/dl (6.4-8.2)
[2019-08-14] MEDS ORDERED: ASPIRIN 81 MG CHEWABLE TABLETS PO ONE (13:47)
[2019-08-14 13:59] LABS: PLATELET ESTIMATE ADEQUATE
--- NOTE | 2019-08-14 14:35 | EKG ---
Test Reason : Blood Pressure : / mmHG Vent. Rate : 072 BPM Atrial Rate : 072 BPM P-R Int : 146 ms QRS Dur : 084 ms QT Int : 492 ms P-R-T Axes : 073 057 077 degrees QTc Int : 538 ms SINUS RHYTHM WITH MARKED SINUS ARRHYTHMIA NONSPECIFIC ST AND T WAVE ABNORMALITY PROLONGED QT ABNORMAL ECG WHEN COMPARED WITH ECG OF 29-JAN-2019 13:57, NONSPECIFIC T WAVE ABNORMALITY NO LONGER EVIDENT IN INFERIOR LEADS T WAVE INVERSION LESS EVIDENT IN ANTEROLATERAL LEADS Confirmed by BHAVIN BEGUM MD ([id number]) on 08/14/2019 2:34:52 PM Referred By: Confirmed By:BHAVIN BEGUM MD
[2019-08-14] MEDS ORDERED: ASPIRIN 81 MG CHEWABLE TABLETS ONE (14:55)
--- NOTE | 2019-08-14 15:05 | ECHO ---
Name: HOANG WOODALLLEEN Exam:Adult Echocardiogram Study Date: 08/14/2019 02:00 PM Age: 59 yrs Height: 68 in Weight: 160 lb BSA: 1.9 m2 MMode/2D Measurements & Calculations IVSd: 0.89 cm Ao root diam: 2.4 cm LVIDd: 4.1 cm LA dimension: 3.1 cm LVIDs: 3.0 cm ACS: 1.8 cm LVPWd: 1.0 cm EDV(Teich): 73.3 ml LVOT diam: 1.9 cm ESV(Teich): 34.5 ml RV S Yossi: 16.6 cm/sec Doppler Measurements & Calculations MV E max yossi: 106.1 cm/sec Ao V2 max: 125.1 cm/sec MV A max yossi: 88.8 cm/sec Ao max P.3 mmHg MV E/A: 1.2 Ao V2 mean: 81.7 cm/sec MV dec time: 0.14 sec Ao mean P.0 mmHg Ao V2 VTI: 26.2 cm JOSE R(I,D): 2.0 cm2 JOSE R(V,D): 2.0 cm2 LV V1 max P.2 mmHg MR max yossi: 438.7 cm/sec LV V1 mean P.6 mmHg MR max P.1 mmHg LV V1 max: 88.8 cm/sec LV V1 mean: 57.1 cm/sec LV V1 VTI: 18.7 cm SV(LVOT): 51.8 ml TR max yossi: 205.6 cm/sec TR max P.4 mmHg PA V2 max: 56.3 cm/sec Med Peak E' Yossi: 6.1 cm/sec PA max P.3 mmHg Med E/e': 17.3 Lat Peak E' Yossi: 6.0 cm/sec Lat E/e': 17.6 Procedure A complete two-dimensional transthoracic echocardiogram was performed (2D, M-mode, Doppler and color flow Doppler). Left Ventricle The left ventricular size, thickness and function are normal. The left ventricular ejection fraction is normal. Ejection Fraction = 60-65%. The left ventricular wall motion is normal. Right Ventricle The right ventricle is normal in size and function. Atria Normal left and right atrial size and function. Mitral Valve There is trace mitral regurgitation. Tricuspid Valve No tricuspid regurgitation. There was insufficient TR detected to calculate RV systolic pressure. Aortic Valve No hemodynamically significant valvular aortic stenosis. No aortic regurgitation is present. Pulmonic Valve There is no pulmonic valvular regurgitation. Great Vessels The aortic root is normal size. Pericardium/Pleura There is no pericardial effusion. Interpretation Summary The left ventricular size, thickness and function are normal The right ventricle is normal in size and function. There is trace mitral regurgitation. MD Gómez Cavanaugh 08/14/2019 03:04 PM
[2019-08-14] MEDS ORDERED: ACETAMINOPHEN 325 MG TABLET (FP) PO PRN (15:54)
--- NOTE | 2019-08-14 15:54 | HP ---
CHIEF COMPLAINT: referred by outpt Order Filler for concerning EKG PCP: Dr Olsen([facility]) HISTORY OF PRESENT ILLNESS: 59F w/ of HTN, HLD, hypothyroidism, chronic anxiety referred from Order Filler( Dr Smith --partner of Dr Childs) for RUQ pain and EKG showing abnormal Twaves in the lateral leads. Patient has complaint of tooth pain, malaise-anorexia, chills x1week then nausea-retching x2d, loose stools x1d; that prompted urgent care visit 08/12/19(2d prior). Found to be flu negative and HTNsive w/ SBP ~160s and recommended to go to ED. Pt did not go to ED, but went to Order Filler on 08/14/19 for evaluation which found the abnormal EKG. In the ED, said that the RUQ pain has resolved. Denies sick contacts. No strange foods. Has had a previous admission in January 2019 for abd pain and elevated troponins, CT A/P was neg at that time. Had Stress Test which showed reversible perfusion defect in the inferior wall. Recommended to get outpatient heart cath. 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 ER course was notable for: (1) Tmax 98, HR 75, BP 148/86 (2) WBC 21(neutrophils 86%) (3) troponin 1.11, 1.0 (4) EKG w/ ?STdepression in lateral leads, QTc 531 (5) RUQ US: norm GB, neg cholelithiasis (6) sp NS x1L, Ofirmev x1, zofran IV x1, ASA 162mg (7) Cardio(Amadeo) thought demand ischemia 2/2 GI-infectious process Recent Travel: none PAST MEDICAL HISTORY: HTN, HLD, hypothyroidism, chronic anxiety PAST SURGICAL HISTORY: none Social History: Smokin-3cig/daily, 20ys Alcohol: rare Drugs: prescription Xanax 0.5mg, one pill daily Allergies No Known Allergies Allergy (Verified 08/14/19 11:22) HOME MEDICATIONS: Home Medications Medication Instructions Recorded Aspirin Coated [Ecotrin -] 81 mg PO DAILY #30 tablet.ec 01/29/19 Atorvastatin Ca [Lipitor] 20 mg PO HS #30 tablet 01/29/19 Fluoxetine HCl [Prozac] 40 mg PO DAILY 01/29/19 Levothyroxine [Synthroid -] 100 mcg PO DAILY 01/29/19 Lisinopril [Prinivil] 20 mg PO DAILY #30 tablet 01/29/19 Metoprolol Tartrate [Lopressor -] 25 mg PO BID #30 tablet 01/29/19 REVIEW OF SYSTEMS CONSTITUTIONAL: chills, malaise, loss of appetite Absent: fever, diaphoresis, generalized weakness, weight change HEENT: Absent: rhinorrhea, nasal congestion, throat pain, throat swelling, difficulty swallowing, mouth swelling, ear pain, eye pain, visual changes CARDIOVASCULAR: Absent: chest pain, syncope, palpitations, irregular heart rate, lightheadedness , peripheral edema RESPIRATORY: Absent: cough, shortness of breath, dyspnea with exertion, orthopnea, wheezing, stridor, hemoptysis GASTROINTESTINAL: nausea, vomiting, Right-sided abd pain, loose stools Absent: abdominal distension, constipation, melena, hematochezia GENITOURINARY: Absent: dysuria, frequency, urgency, hesitancy, hematuria, flank pain, genital pain MUSCULOSKELETAL: Absent: myalgia, arthralgia, joint swelling, back pain, neck pain SKIN: Absent: rash, itching, pallor HEMATOLOGIC/IMMUNOLOGIC: Absent: easy bleeding, easy bruising, lymphadenopathy, frequent infections ENDOCRINE: Absent: unexplained weight gain, unexplained weight loss NEUROLOGIC: Absent: headache, focal weakness or paresthesias, dizziness, unsteady gait, seizure, mental status changes, bladder or bowel incontinence PHYSICAL EXAMINATION Vital Signs - 24 hr 08/14/19 08/14/19 11:19 15:46 Temperature 98 F 98.0 F Pulse Rate 75 Pulse Rate [ 68 Left] Respiratory 18 Rate Blood Pressure 148/86 Blood Pressure 135/87 [Left Arm] O2 Sat by Pulse 98 98 Oximetry (%) GENERAL: Awake, NAD, obese, flush-appearing HEAD: NC/AT. Right upper canine tooth with mild erythema, no drainage EYES: extraocular movements intact, sclera anicteric, conjunctiva clear. EARS, NOSE, THROAT: Ears normal, nares patent, oropharynx clear without exudates. Dry tongue NECK: Normal range of motion, supple without lymphadenopathy, JVD, or masses. LUNGS: Breath sounds equal, clear to auscultation bilaterally. No wheezes, and no crackles. No accessory muscle use. Breathing RA HEART: Regular rate and rhythm, normal S1 and S2 without murmur, rub or gallop. ABDOMEN: Soft, nontender, not distended, normoactive bowel sounds, no guarding, no rebound, no masses. Neg Tapia's, Neg McBurney's, Neg CVA tenderness MUSCULOSKELETAL: Normal range of motion at all joints. No bony deformities or tenderness. UPPER EXTREMITIES: 2+ pulses, warm, well-perfused. No cyanosis. No clubbing. No peripheral edema. LOWER EXTREMITIES: 2+ pulses, warm, well-perfused. No calf tenderness. No peripheral edema. NEUROLOGICAL: Normal speech. PSYCHIATRIC: Cooperative. Good eye contact. Appropriate mood and affect. SKIN: Warm, dry, normal turgor, no rashes or lesions noted, normal capillary refill. Laboratory Results - last 24 hr 08/14/19 08/14/19 08/14/19 11:49 11:49 12:03 WBC 21.0 H RBC 5.64 H Hgb 15.9 H Hct 47.4 H MCV 84.1 MCH 28.2 MCHC 33.6 RDW 13.9 Plt Count 308 D MPV 9.4 Absolute Neuts (auto) 18.1 H Neutrophils % 86.3 H D Neutrophils % (Manual) 82.0 Band Neutrophils % 2.0 Lymphocytes % 6.7 L D Lymphocytes % (Manual) 8.0 Monocytes % 6.8 Monocytes % (Manual) 4 Eosinophils % 0.0 D Eosinophils % (Manual) 0.0 Basophils % 0.2 Basophils % (Manual) 0.0 Nucleated RBC % 0 Platelet Estimate Adequate PT with INR INR Sodium 135 L Potassium 3.9 Chloride 99 Carbon Dioxide 27 Anion Gap 10 BUN 13.4 Creatinine 0.6 Est GFR (CKD-EPI)AfAm 116.45 Est GFR (CKD-EPI)NonAf 100.47 Random Glucose 122 H Calcium 10.1 Total Bilirubin 0.7 AST 21 ALT 25 Alkaline Phosphatase 88 Creatine Kinase 125 Troponin I 1.11 H* Total Protein 8.4 H Albumin 4.5 Lipase 104 TSH 0.92 Influenza A (Rapid) Influenza B (Rapid) 08/14/19 08/14/19 12:03 12:03 WBC RBC Hgb Hct MCV MCH MCHC RDW Plt Count MPV Absolute Neuts (auto) Neutrophils % Neutrophils % (Manual) Band Neutrophils % Lymphocytes % Lymphocytes % (Manual) Monocytes % Monocytes % (Manual) Eosinophils % Eosinophils % (Manual) Basophils % Basophils % (Manual) Nucleated RBC % Platelet Estimate PT with INR 12.20 INR 1.03 Sodium Potassium Chloride Carbon Dioxide Anion Gap BUN Creatinine Est GFR (CKD-EPI)AfAm Est GFR (CKD-EPI)NonAf Random Glucose Calcium Total Bilirubin AST ALT Alkaline Phosphatase Creatine Kinase Troponin I Total Protein Albumin Lipase TSH Influenza A (Rapid) Negative Influenza B (Rapid) Negative ASSESSMENT/PLAN: 59F w/ of HTN, HLD, hypothyroidism, chronic anxiety referred from Order Filler( Dr Smith --partner of Dr Childs) for RUQ pain w/ NV, loose stools, and EKG showing abnormal Twaves in the lateral leads. Afebrile. Initial WBC 21( neutrophils 86%). Troponins 1.11, 1.0. Cardio(Amadeo) thought possible demand ischemia 2/2 to GI infection. Admitted for GI r/o # NSTEMI --possibly demand ischemia 2/2 GI infection > WBC 21 > troponin 1.11, 1.0 --fu third troponin > Echo(08/14/19): LVEF 60-65% > CXR --pending - ED: s/p ASA 162mg - ASA 81mg - atorvastatin 20mg - Cardio(Amadeo) consulted: --further recs pending # Right-sided abd pain(w/a N-V, loose stools) --possibly infectious in etiology > CT A/P: read pending > CXR --pending > lactic acid 1.6 > lipase 550 > stool culture --pending > cdiff --pending > RSV --pending > UCX --pending > BCX --pending > UA --pending - pain regimen: ofirmev - compazine 5mg PRN - holding abx for now until infectious source is found # chronic essential HTN - home metoprolol, lisinopril # hypothydroidism - home levothyroxine FEN - NS @100 - NPO until resolution of abd pain DVT ppx: - lovenox 40mg Family Medical History Family Hx Cancer: Mother (HTN) Family Hx Diabetes: Sister Visit type - Emergency Visit Emergency Visit: Yes ED Registration Date: 08/14/19 Care time: The patient presented to the Emergency Department on the above date and was hospitalized for further evaluation of their emergent condition. - New Patient This patient is new to me today: Yes Date on this admission: 08/14/19 - Critical Care Critical Care patient: No ATTENDING PHYSICIAN STATEMENT I saw and evaluated the patient. I reviewed the resident's note and discussed the case with the resident. I agree with the resident's findings and plan as documented. SUBJECTIVE: OBJECTIVE: ASSESSMENT AND PLAN:
[2019-08-14 15:57] LABS: EPI CELLS 7.1 /HPF (0-5/HPF); HYALINE CASTS 5 /lpf (0-8); URINE APPEARANCE CLEAR; URINE BACTERIA 157.1 /hpf (NEGATIVE); URINE BILIRUBIN NEGATIVE (NEGATIVE); URINE COLOR YELLOW; URINE GLUCOSE (UA) NEGATIVE (NEGATIVE); URINE KETONE 2+ (NEGATIVE); URINE LEUK ESTERASE NEGATIVE (NEGATIVE); URINE NITRITE NEGATIVE (NEGATIVE); URINE PROTEIN 3+ (NEGATIVE); URINE RBC 6 /hpf (0-4); URINE UROBILINOGEN 0.2 mg/dL (0.2-1.0); URINE WBC 4 /hpf (0-5)
[2019-08-14] MEDS ORDERED: ACETAMINOPHEN 1000 MG/100 ML VIAL (NON FORMULARY) IVPB ONE (16:45)
--- NOTE | 2019-08-14 17:00 | PN ---
Teaching Attending Note Name of Resident: Celestine Carranza ATTENDING PHYSICIAN STATEMENT I saw and evaluated the patient. I reviewed the resident's note and discussed the case with the resident. I agree with the resident's findings and plan as documented. SUBJECTIVE: Cc: malaise , N/V. HPI: Mrs. Cardona is a pleasant 59 y/o lady with h/o Anxiety, HTN, CAD ( + stress test in 01/22), hyperlipidemia and hypothyroidism, who presented from [facility] due to EKG changes. She has been feelling malaise, Nausea , vomited once ( non bloody and non bilious), since Sunday. poor appetite. denied fever. denied abd pain. She went to Urgent care yesterday, flu swab was neg today she went to [facility] ( Dr. Childs office ) , due to elevated BP in 160s ( after retching ) . EKG was done and was told " it did not look good" . she denied CP or SOB or cough. in his office, and due to abd exam she had R sided pain. today her face has been flushed, but no fever. she feels tired. no travel, no sick contact. loose BM yesterday. none today. feels dehydrated. OBJECTIVE: NAd, awake, alert, pleasant, cooperative dry MM, no facial droop. nl oropharynx, no exudatem, no lymphadenopathy in neck. CV: RRR, no MRG Lungs: CTAB Abd: soft, TTP in RLQ, and RUQ. + mcBurny's , + Rofsing's, Neg Obturater and neg Psoas sign . No guarding. Ext: No edema or erythema on upper or lower extremities. Skin : No rash , flushed face. Neuro: EOMI, round equal pupils, no facial droop. strength 5/5 in upper and lower extremities proximally and distally. EKG: sinus rhythm, QTc 538. lateral ST depression ( less in intensity compared to EKG 01/22). No inversion in T waves. EKG form 01/[address] depression and TWI. EKG form showed NO ST depression in Lateral leads and no TWI. Qtc in high 400s. EKG from [facility] office this am, was similar to the one obtained in ER. ASSESSMENT AND PLAN: Mrs. Cardona is a pleasant 59 y/o lady with h/o Anxiety, HTN, CAD ( + stress test in 01/22), hyperlipidemia and hypothyroidism, who presented from [facility] due to EKG changes. In ER she was found to have leukocytosis and elevated trop. 1- Leukocytosis: No signs of sepsis. In light of RLQ tenderness and + Rofsing' s and McBurny's signs, acute appendicitis need to be r/o. No clinical signs of PNA , no convincing UA evidence of UTI. - Obtain CT scan of Abd/pelvis with IV contrast. - Obtain cxray - repeat swab for resp viral panel - check stool studies nad c diff if diarrhea recurs. - lactate nl . Lipase slightly elevated, doubt acute pancreatitis - hold off Abx without a source. if Ct is + will start treatment with Abx. - NPO until after CT 2- Elevated Trop : No CP. could be demand ischemia in setting of infection . EKG though, showed ST depression in lateral leads which was not there in . - second trop is trending down. - will repeat EKG now - cont BB and statin - case was d/w Dr. Childs by ER staff, and no AC or intervention is recommended 3- h/o Hypothyroidism: will confirm and cont synthroid 4- H/o HTN: cont metoprolol and lisinopril. 5- DVT Px: lovenox in am if no procedure is indicated
[2019-08-14] MEDS: SODIUM CHLORIDE 1,000 ML IV SCH (17:02)
[2019-08-14] MEDS ORDERED: PROCHLORPERAZINE MALEATE 5 MG TABLET PO PRN (18:14)
[2019-08-14] MEDS ORDERED: ACETAMINOPHEN 1000 MG/100 ML VIAL (NON FORMULARY) IVPB PRN (20:00)
[2019-08-14] MEDS ORDERED: METOPROLOL TARTRATE 25 MG TABLET (FP) PO SCH (22:00)
[2019-08-14] MEDS ORDERED: ATORVASTATIN CA 20 MG TABLET (FP) PO SCH (22:00)
[2019-08-14] MEDS: METOPROLOL TARTRATE 25 MG TABLET (FP) PO SCH (22:21)
[2019-08-15] MEDS: LEVOTHYROXINE NA 100 MCG TABLET (FP) PO SCH (06:54)
[2019-08-15 07:57] LABS: BASO % 0.2 % (0-2.0); HEMATOCRIT 41.5 % (32.4-45.2); HEMOGLOBIN 14.2 GM/dL (10.7-15.3); LYMPH % 11.7 % (8-40); MCH 28.3 pg (25.7-33.7); MCHC 34.2 g/dl (32.0-36.0); MEAN CELL VOLUME 82.7 fl (80-96); MEAN PLT VOLUME 8.8 fl (7.5-11.1); MONO % 6.4 % (3.8-10.2); NEUT % 81.7 % (42.8-82.8); PLATELET COUNT 263 K/MM3 (134-434); RBC 5.01 M/mm3 (3.60-5.2); RDW 13.7 % (11.6-15.6); WHITE BLOOD COUNT 14.9 K/mm3 (4.0-10.0)
[2019-08-15 08:21] LABS: BLOOD UREA NITROGEN 10.7 mg/dL (7-18); CALCIUM 9.4 mg/dL (8.5-10.1); CREATININE 0.4 mg/dL (0.55-1.3); MAGNESIUM 1.9 mg/dL (1.8-2.4); POTASSIUM 3.3 mmol/L (3.5-5.1)
[2019-08-15] MEDS ORDERED: POTASSIUM CHLORIDE TABS 20 MEQ TABLET.ER (FP) PO ONE (08:30)
[2019-08-15] MEDS ORDERED: NAPH,MB-DB/K PH,MBDB POWDER PACKET PO ONE (08:32)
--- NOTE | 2019-08-15 09:43 | CON.CARD ---
Consult Consult Specialty:: Cardiology Referred by:: Hospitalist Medicine Reason for Consultation:: Demand ischemia - History of Present Illness Chief Complaint: Abd pain, nausea, emesis History of Present Illness: Mrs. 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 denied fever. She went to urgent care, flu swab was neg, she went to card ( Dr. Childs office ) , due to elevated BP in 160s ( after retching ) . she denied CP or SOB or cough, palpitations, orthopnea, PND or LE edema. Abd imaging unremarkable, able to tolerate clear liquid diet. - History Source History Provided By: Patient - Past Medical History Cardio/Vascular: Yes: HTN - Alcohol/Substance Use Hx Alcohol Use: No - Smoking History Smoking history: Current every day smoker Have you smoked in the past 12 months: Yes Aproximately how many cigarettes per day: 3 Home Medications - Allergies Allergies/Adverse Reactions: Allergies Allergy/AdvReac Type Severity Reaction Status Date / Time No Known Allergies Allergy Verified 08/14/19 11:22 - Home Medications Home Medications: Ambulatory Orders Aspirin Coated [Ecotrin -] 81 mg PO DAILY #30 tablet.ec 01/29/19 Atorvastatin Ca [Lipitor] 20 mg PO HS #30 tablet 01/29/19 Fluoxetine HCl [Prozac] 40 mg PO DAILY 01/29/19 Levothyroxine [Synthroid -] 100 mcg PO DAILY 01/29/19 Lisinopril [Prinivil] 20 mg PO DAILY #30 tablet 01/29/19 Metoprolol Tartrate [Lopressor -] 12.5 mg PO BID 08/14/19 Review of Systems - Review of Systems Gastrointestinal: reports: Abdominal Pain, Nausea, Vomiting Vital Signs: Vital Signs Temperature 98.3 F 08/15/19 02:00 Pulse Rate 78 08/15/19 06:00 Respiratory Rate 20 08/15/19 06:00 Blood Pressure 129/80 08/15/19 06:00 O2 Sat by Pulse Oximetry (%) 98 08/14/19 21:00 Constitutional: Yes: No Distress, Calm Neck: Yes: Supple Respiratory: Yes: Regular, CTA Bilaterally Gastrointestinal: Yes: Normal Bowel Sounds, Soft Cardiovascular: Yes: Regular Rate and Rhythm JVD: No Carotid Bruit: No Heart Sounds: Yes: S1, S2 Murmur: Yes: Systolic Murmur, Grade 1 Edema: No - Other Data Labs, Other Data: CBC, BMP 08/15/19 07:05 08/15/19 07:05 INR, PTT INR 1.03 (0.83-1.09) 08/14/19 12:03 Troponin, BNP 08/14/19 08/14/19 08/14/19 11:49 15:45 22:35 Troponin I 1.11 H* 1.00 H* 0.82 H* Troponin, BNP 08/14/19 08/14/19 08/14/19 11:49 15:45 22:35 Troponin I 1.11 H* 1.00 H* 0.82 H* NSR @ 72 prolonged QT Ejection Fraction %: LVEF > or = 40 % Imaging - Results Chest X-ray: Report Reviewed (NAD) Cat Scan: Report Reviewed (Colonic diverticulosis) Problem List - Problems (1) Demand ischemia Code(s): I24.8 - OTHER FORMS OF ACUTE ISCHEMIC HEART DISEASE (2) Elevated troponin I level Code(s): R79.89 - OTHER SPECIFIED ABNORMAL FINDINGS OF BLOOD CHEMISTRY (3) Leukocytosis Code(s): D72.829 - ELEVATED WHITE BLOOD CELL COUNT, UNSPECIFIED Qualifiers: Leukocytosis type: unspecified Qualified Code(s): D72.829 - Elevated white blood cell count, unspecified (4) Abnormal myocardial perfusion study Code(s): R94.39 - ABNORMAL RESULT OF OTHER CARDIOVASCULAR FUNCTION STUDY (5) HTN (hypertension) Code(s): I10 - ESSENTIAL (PRIMARY) HYPERTENSION Qualifiers: Hypertension type: essential hypertension Qualified Code(s): I10 - Essential (primary) hypertension (6) Hypercholesterolemia Code(s): E78.00 - PURE HYPERCHOLESTEROLEMIA, UNSPECIFIED (7) Hypothyroidism Code(s): E03.9 - HYPOTHYROIDISM, UNSPECIFIED (8) Prolonged QT interval Code(s): R94.31 - ABNORMAL ELECTROCARDIOGRAM [ECG] [EKG] Assessment/Plan 08/15/2019 Echo: Normal biventricular size and fxn tr MR 08/14/2019 RUQ US: norm GB, neg cholelithiasis 01/28/2019 Echo: Normal LV and RV size and fxn, normal biatrial sizes, LVEF 58% 01/29/2019 Nuclear MPI (Pharmacological) shows moderate size, moderate intensity inferior ischemia LVEF 59% 1. Nausea and vomiting, right abd pain, leukocytosis etiology to be determined. ? viral illness 2. CAD, demand ischemia and abnormal MPI 3. HTN 4. Hypercholesterolemia 5. Hypothyroidism 6. Prolonged QT 2/2 SSRI PLAN: 1. Troponins are downtrending, replete K, observe off abx, monitor surveillance cultures 3. Increase Lopressor 25 mg BID, Lisinopril 20 mg QD, ASA 81 qd and Lipitor 20 qhs 4. Outpatient cardiology f/u for repeat Lexiscan Myoview to assess severity of CAD 5. Thank you for consultative opportunity
[2019-08-15] MEDS ORDERED: PT OWN MED DRAWER 7, Y5N ONE (09:44)
[2019-08-15] MEDS ORDERED: PATIENT'S OWN MEDICATION (NON-FORMULARY) (Fluoxetine Hcl [Prozac] 40 MG) PO SCH (10:00)
--- NOTE | 2019-08-15 10:46 | CON.ID ---
Consult Consult Specialty:: infectious diseases Referred by:: Ar Antonio Reason for Consultation:: vomiting,dirrhoea,fever,leukocytosis - History of Present Illness Chief Complaint: vomiting. weakness History of Present Illness: 59F w/ of HTN, HLD, hypothyroidism, chronic anxiety referred from [facility] Stat[employer] for RUQ pain . Patient has complaint of tooth pain, malaise-anorexia, chills x1week then nausea-retching x2d, loose stools x1d; that prompted urgent care visit 08/12/19(2d prior). Found to be flu negative and HTNsive w/ SBP ~160s and recommended to go to ED. Pt did not go to ED, but went to [facility] on for evaluation which found the abnormal EKG. In the ED, said that the RUQ pain has resolved. Denies sick contacts. No strange foods. Has had a previous admission in January 2019 for abd pain and elevated troponins, CT A/P was neg at that time. Had Stress Test which showed reversible perfusion defect in the inferior wall. Recommended to get outpatient heart cath. Pt states that her pantograph setter did not recommend any other testing. patient is a chronic smoker - History Source History Provided By: Patient Limitations to Obtaining History: No Limitations - Past Medical History Cardio/Vascular: Yes: HTN - Alcohol/Substance Use Hx Alcohol Use: No - Smoking History Smoking history: Current every day smoker Have you smoked in the past 12 months: Yes Aproximately how many cigarettes per day: 3 Home Medications - Allergies Allergies/Adverse Reactions: Allergies Allergy/AdvReac Type Severity Reaction Status Date / Time No Known Allergies Allergy Verified 08/14/19 11:22 - Home Medications Home Medications: Ambulatory Orders Aspirin Coated [Ecotrin -] 81 mg PO DAILY #30 tablet.ec 01/29/19 Atorvastatin Ca [Lipitor] 20 mg PO HS #30 tablet 01/29/19 Fluoxetine HCl [Prozac] 40 mg PO DAILY 01/29/19 Levothyroxine [Synthroid -] 100 mcg PO DAILY 01/29/19 Lisinopril [Prinivil] 20 mg PO DAILY #30 tablet 01/29/19 Metoprolol Tartrate [Lopressor -] 12.5 mg PO BID 08/14/19 Review of Systems - Review of Systems Constitutional: reports: Fever Eyes: reports: No Symptoms HENT: reports: No Symptoms Neck: reports: No Symptoms Cardiovascular: reports: No Symptoms Respiratory: reports: Cough, SOB, SOB on Exertion Gastrointestinal: reports: Vomiting, Other Genitourinary: reports: No Symptoms Musculoskeletal: reports: No Symptoms Integumentary: reports: No Symptoms Neurological: reports: No Symptoms Endocrine: reports: No Symptoms Hematology/Lymphatic: reports: No Symptoms Psychiatric: reports: No Symptoms Physical Exam Vital Signs: Vital Signs Temperature 98 F 08/15/19 10:00 Pulse Rate 80 08/15/19 10:00 Respiratory Rate 18 08/15/19 10:00 Blood Pressure 148/92 08/15/19 10:00 O2 Sat by Pulse Oximetry (%) 98 08/14/19 21:00 Constitutional: Yes: Well Nourished, No Distress, Calm Cardiovascular: Yes: S1, S2 Respiratory: Yes: Regular, CTA Bilaterally Gastrointestinal: Yes: Normal Bowel Sounds, Soft Musculoskeletal: Yes: WNL Extremities: Yes: WNL Neurological: Yes: Alert, Oriented Psychiatric: Yes: Alert, Oriented Labs: CBC, BMP 08/15/19 07:05 08/15/19 07:05 Imaging - Results Chest X-ray: Report Reviewed, Image Reviewed Cat Scan: Report Reviewed, Image Reviewed Assessment/Plan nausea vomiting htn hypothyroidism cad leukocytosis plan continue current mgmt will not start on abx hydration rest as per the team
[2019-08-15] MEDS: KCL 10 MEQ IVPB 10 MEQ/100 ML INFUS.BAG IVPB SCH ×2 (10:47→12:37)
[2019-08-15] MEDS: ASPIRIN COATED 81 MG TABLET.EC PO SCH (10:48)
[2019-08-15] MEDS: FLUoxetine HCL 20 MG CAPSULE (FP) PO SCH (10:48)
[2019-08-15] MEDS: METOPROLOL TARTRATE 25 MG TABLET (FP) PO SCH ×2 (10:48→22:04)
[2019-08-15] MEDS: LISINOPRIL 20 MG TABLET (FP) PO SCH (10:48)
[2019-08-15] MEDS: ENOXAPARIN NA (PORCINE) 40 MG/0.4 ML DISP.SYRIN SQ SCH (10:49)
--- NOTE | 2019-08-15 13:54 | EKG ---
Test Reason : Blood Pressure : / mmHG Vent. Rate : 070 BPM Atrial Rate : 070 BPM P-R Int : 146 ms QRS Dur : 082 ms QT Int : 492 ms P-R-T Axes : 070 040 070 degrees QTc Int : 531 ms SINUS RHYTHM WITH MARKED SINUS ARRHYTHMIA NONSPECIFIC ST AND T WAVE ABNORMALITY PROLONGED QT ABNORMAL ECG WHEN COMPARED WITH ECG OF 14-AUG-2019 11:56, NO SIGNIFICANT CHANGE WAS FOUND Confirmed by MARIAM SPEARS MD ([id number]) on 08/15/2019 1:53:55 PM Referred By: Confirmed By:MARIAM SPEARS MD
[2019-08-15] MEDS: SODIUM CHLORIDE 1,000 ML IV SCH (17:00)
--- NOTE | 2019-08-15 18:44 | PN ---
Physical Exam: SUBJECTIVE: Patient seen and examined LUZ ELENAEON Tele: artifact Denies NV. Has appetite, doesn't like the taste of the CLD. Denies vomiting and loose stools OBJECTIVE: Vital Signs Period Temp Pulse Resp BP Sys/Mcginnis Pulse Ox Last 24 Hr 98 F-99.0 F 69-80 16-20 129-148/80-98 98-98 GENERAL: Awake, NAD, obese, flush-appearing. Mildy anxious HEAD: NC/AT. Right upper canine tooth with mild erythema, no drainage EYES: extraocular movements intact, sclera anicteric, conjunctiva clear. ENT: Ears normal, nares patent, oropharynx clear without exudates. Dry tongue NECK: Normal range of motion, supple without lymphadenopathy, JVD, or masses. LUNGS: Breath sounds equal, clear to auscultation bilaterally. No wheezes, and no crackles. No accessory muscle use. Breathing RA HEART: Regular rate and rhythm, S1, S2 without murmur, rub or gallop. ABDOMEN: Soft, nontender, not distended, normoactive bowel sounds, no guarding, no rebound, no masses. Neg Tapia's, Neg McBurney's, Neg CVA tenderness EXTREMITIES: 2+ pulses, warm, well-perfused, no edema. NEUROLOGICAL: Normal speech, gait not observed. SKIN: Warm, dry, normal turgor, no rashes or lesions noted Laboratory Results - last 24 hr 08/14/19 08/14/19 08/15/19 18:50 22:35 07:05 WBC 14.9 H RBC 5.01 Hgb 14.2 Hct 41.5 MCV 82.7 MCH 28.3 MCHC 34.2 RDW 13.7 Plt Count 263 MPV 8.8 Absolute Neuts (auto) 12.2 H Neutrophils % 81.7 Lymphocytes % 11.7 D Monocytes % 6.4 Eosinophils % 0.0 Basophils % 0.2 Nucleated RBC % 0 Sodium Potassium Chloride Carbon Dioxide Anion Gap BUN Creatinine Est GFR (CKD-EPI)AfAm Est GFR (CKD-EPI)NonAf POC Glucometer 125 Random Glucose Hemoglobin A1c % Calcium Phosphorus Magnesium Troponin I 0.82 H* Triglycerides Cholesterol Total LDL Cholesterol HDL Cholesterol 08/15/19 08/15/19 08/15/19 07:05 07:05 17:18 WBC RBC Hgb Hct MCV MCH MCHC RDW Plt Count MPV Absolute Neuts (auto) Neutrophils % Lymphocytes % Monocytes % Eosinophils % Basophils % Nucleated RBC % Sodium 132 L Potassium 3.3 L Chloride 97 L Carbon Dioxide 24 Anion Gap 11 BUN 10.7 Creatinine 0.4 L Est GFR (CKD-EPI)AfAm 133.07 Est GFR (CKD-EPI)NonAf 114.81 POC Glucometer 115 Random Glucose 100 Hemoglobin A1c % 5.2 Calcium 9.4 Phosphorus 2.0 L Magnesium 1.9 Troponin I Triglycerides 135 Cholesterol 218 H Total LDL Cholesterol 133 H HDL Cholesterol 51 Active Medications Generic Name Dose Route Start Last Admin Trade Name Freq PRN Reason Stop Dose Admin Acetaminophen 1,000 mg 08/14/19 20:00 Ofirmev Injection - IVPB Q6H PRN PAIN LEVEL 6-10 Alprazolam 0.5 mg 08/15/19 21:00 Xanax - PO 08/15/19 21:01 ONCE ONE Aspirin 81 mg 08/15/19 10:00 08/15/19 10:48 Ecotrin - PO 81 mg DAILY IWONA Administration Atorvastatin Calcium 40 mg 08/15/19 22:00 Lipitor - PO HS IWONA Enoxaparin Sodium 40 mg 08/15/19 10:00 08/15/19 10:49 Lovenox - SQ 40 mg DAILY [facility] Administration Fluoxetine HCl 40 mg 08/15/19 10:00 08/15/19 10:48 Prozac - PO 40 mg DAILY I[facility]ONA Administration Sodium Chloride 1,000 mls @ 100 mls/hr 08/14/19 16:00 08/14/19 17:02 Normal Saline - IV 100 mls/hr ASDIR I[facility]ONA Administration Levothyroxine Sodium 100 mcg 08/15/19 07:00 08/15/19 06:54 Synthroid - PO 100 mcg DAILY@0700 I[facility] Administration Lisinopril 20 mg 08/15/19 10:00 08/15/19 10:48 Prinivil PO 20 mg DAILY [facility] Administration Melatonin 5 mg 08/15/19 21:00 Melatonin PO 08/15/19 21:01 ONCE ONE Metoprolol Tartrate 25 mg 08/15/19 10:50 Lopressor - PO BID I[facility] Prochlorperazine Maleate 5 mg 08/14/19 18:14 Compazine - PO Q6H PRN NAUSEA AND/OR VOMITING ASSESSMENT/PLAN: 59F w/ of HTN, HLD, hypothyroidism, chronic anxiety 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 Afebrile. Initial WBC 21( neutrophils 86%). Troponins 1.11, 1.0. Cardio([facility]) thought possible demand ischemia 2/2 to GI infection; rec for outpatient stress test. Admitted for ACS r /o. Despite leukocytosis, no source of intra-abd or pulmonary infection. Likely viral GI infection. Tolerated CLD, advanced to cholesterol diet. # NSTEMI --possibly demand ischemia 2/2 GI infection > WBC 21 > troponin 1.11, 1.0, 0.82 > Echo(08/14/19): LVEF 60-65% - ED: s/p ASA 162mg - ASA 81mg - atorvastatin 20mg -->incr to 40mg - Cardio([facility]) consulted: --incr Lopressor 25mg BID --outpt cardiology f/u for repeat Lexiscan Myoview to assess severity of CAD # Right-sided abd pain(w/a N-V, loose stools) --unlikely infectious in etiology , NO abx administered > CT A/P(08/14/19): neg acute path, diverticulosis, L5-S1 grade 1 spondyolytic spondylothiesis > CXR(08/14/19): neg path > UCX(08/14/19): NGTD > BCX(08/14/19): NGTD > lactic acid 1.6 > lipase 550 > stool culture --pending > cdiff --pending > RSV --neg > influ --neg > RVP --pending > UA(08/14/19): protein 3+, ketones 2+, blood 1+, neg Nitrite, neg LE - pain regimen: ofirmev - compazine 5mg PRN # chronic Dyslipidemia: > Tcholesterol 218, LDL 133 - increased home atorvastatin 20mg --> 40mg # chronic essential HTN - home metoprolol, lisinopril # hypothydroidism - home levothyroxine # chronic anxiety - takes xanax 0.5 ~ daily - administer as needed FEN - NS @100 - cholest diet DVT ppx: - lovenox 40mg Visit type - Emergency Visit Emergency Visit: No - New Patient This patient is new to me today: No - Critical Care Critical Care patient: No ATTENDING PHYSICIAN STATEMENT I saw and evaluated the patient. I reviewed the resident's note and discussed the case with the resident. I agree with the resident's findings and plan as documented. SUBJECTIVE: OBJECTIVE: ASSESSMENT AND PLAN:
--- NOTE | 2019-08-15 19:32 | PN ---
Teaching Attending Note Name of Resident: Celestine Carranza ATTENDING PHYSICIAN STATEMENT I saw and evaluated the patient. I reviewed the resident's note and discussed the case with the resident. I agree with the resident's findings and plan as documented. SUBJECTIVE: No fever or chills. feels much better . no CHANDLER . no abd pain, no nausea OBJECTIVE: NAd, awake, alert, pleasant, cooperative MMM CV: RRR, no MRG Lungs: CTAB Abd: soft, minimal discomfort in RLQ, Nl BS. Ext: No edema or erythema on upper or lower extremities. ASSESSMENT AND PLAN: Mrs. 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 In ER she was found to have leukocytosis and elevated trop. 1- Leukocytosis: No source of infection. leukocytosis improved with n o abx. - cont IVF - cont to monitor off Abx . - d/w Dr. Andre -follow blood cx - final report of CT reviewed. 2- Elevated Trop: - cont increased dose BB and f/u with card as out pt cont asa - increase statin as LDl > goal 3- h/o Hypothyroidism: will confirm and cont synthroid 4- H/o HTN: cont metoprolol and lisinopril. dvt Px possible dc tomorrow
[2019-08-15] MEDS ORDERED: MELATONIN 5 MG TABLETS PO ONE (21:00)
[2019-08-15] MEDS ORDERED: ALPRAZolam 0.25 MG TABLET PO ONE (21:00)
[2019-08-15] MEDS ORDERED: ATORVASTATIN CA 40 MG TABLET (FP) PO SCH (22:00)
[2019-08-16] MEDS: LEVOTHYROXINE NA 100 MCG TABLET (FP) PO SCH (06:22)
[2019-08-16 07:03] LABS: BLOOD UREA NITROGEN 9.4 mg/dL (7-18); CALCIUM 9.2 mg/dL (8.5-10.1); CREATININE 0.5 mg/dL (0.55-1.3); HEMOGLOBIN 15.2 GM/dL (10.7-15.3); MAGNESIUM 1.8 mg/dL (1.8-2.4); MCH 28.5 pg (25.7-33.7); MCHC 34.6 g/dl (32.0-36.0); MEAN CELL VOLUME 82.4 fl (80-96); MEAN PLT VOLUME 8.8 fl (7.5-11.1); PHOSPHOROUS 1.9 mg/dL (2.5-4.9); PLATELET COUNT 277 K/MM3 (134-434); POTASSIUM 3.6 mmol/L (3.5-5.1); RBC 5.33 M/mm3 (3.60-5.2); RDW 13.7 % (11.6-15.6)
[2019-08-16 08:57] VITALS: BP 140/95; PULSE 78; TEMP 98
--- NOTE | 2019-08-16 09:34 | PN ---
Progress Note, Physician History of Present Illness: Mrs. 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 denied fever. She went to urgent care, flu swab was neg, she went to card ( Dr. Childs office ) , due to elevated BP in 160s ( after retching ) . she denied CP or SOB or cough, palpitations, orthopnea, PND or LE edema. Abd imaging unremarkable, able to tolerate clear liquid diet. - Current Medication List Current Medications: Active Medications Acetaminophen (Ofirmev Injection -) 1,000 mg IVPB Q6H PRN PRN Reason: PAIN LEVEL 6-10 Aspirin (Ecotrin -) 81 mg PO DAILY [facility] Last Admin: 08/15/19 10:48 Dose: 81 mg Atorvastatin Calcium (Lipitor -) 40 mg PO HS [facility] Last Admin: 08/15/19 22:04 Dose: 40 mg Enoxaparin Sodium (Lovenox -) 40 mg SQ DAILY [facility] Last Admin: 08/15/19 10:49 Dose: 40 mg Fluoxetine HCl (Prozac -) 40 mg PO DAILY [facility] Last Admin: 08/15/19 10:48 Dose: 40 mg Sodium Chloride (Normal Saline -) 1,000 mls @ 100 mls/hr IV ASDIR [facility] Last Admin: 08/14/19 17:02 Dose: 100 mls/hr Levothyroxine Sodium (Synthroid -) 100 mcg PO DAILY@0700 [facility] Last Admin: 08/16/19 06:22 Dose: 100 mcg Lisinopril (Prinivil) 20 mg PO DAILY [facility] Last Admin: 08/15/19 10:48 Dose: 20 mg Metoprolol Tartrate (Lopressor -) 25 mg PO BID [facility] Last Admin: 08/15/19 22:04 Dose: 25 mg Prochlorperazine Maleate (Compazine -) 5 mg PO Q6H PRN PRN Reason: NAUSEA AND/OR VOMITING - Objective Vital Signs: Vital Signs Temperature 98 F 08/16/19 08:57 Pulse Rate 78 08/16/19 08:57 Respiratory Rate 18 08/16/19 08:57 Blood Pressure 140/95 08/16/19 08:57 O2 Sat by Pulse Oximetry (%) 98 08/15/19 21:00 Eyes: Yes: WNL, Conjunctiva Clear, EOM Intact HENT: Yes: WNL, Atraumatic, Normocephalic Neck: Yes: WNL, Supple, Trachea Midline Cardiovascular: Yes: WNL, Regular Rate and Rhythm Respiratory: Yes: WNL, Regular, CTA Bilaterally Gastrointestinal: Yes: WNL, Normal Bowel Sounds Genitourinary: Yes: WNL Musculoskeletal: Yes: WNL Extremities: Yes: WNL Edema: No Integumentary: Yes: WNL Neurological: Yes: WNL, Alert, Oriented ...Motor Strength: WNL Psychiatric: Yes: WNL Labs: CBC, BMP 08/16/19 06:15 08/16/19 06:15 INR, PTT INR 1.03 (0.83-1.09) 08/14/19 12:03 Assessment/Plan 08/15/2019 Echo: Normal biventricular size and fxn tr MR 08/14/2019 RUQ US: norm GB, neg cholelithiasis 01/28/2019 Echo: Normal LV and RV size and fxn, normal biatrial sizes, LVEF 58% 01/29/2019 Nuclear MPI (Pharmacological) shows moderate size, moderate intensity inferior ischemia LVEF 59% 1. Nausea and vomiting, right abd pain, leukocytosis etiology to be determined. ? viral illness 2. CAD, demand ischemia and abnormal MPI 3. HTN 4. Hypercholesterolemia 5. Hypothyroidism 6. Prolonged QT 2/2 SSRI PLAN: 1. Troponins are downtrending, replete K, observe off abx, monitor surveillance cultures 3. Increase Lopressor 25 mg BID, Lisinopril 20 mg QD, ASA 81 qd and Lipitor 20 qhs 4. Outpatient cardiology f/u for repeat Lexiscan Myoview to assess severity of CAD coverage for dr. Childs
[2019-08-16] MEDS: METOPROLOL TARTRATE 25 MG TABLET (FP) PO SCH (09:45)
[2019-08-16] MEDS: ASPIRIN COATED 81 MG TABLET.EC PO SCH (09:45)
[2019-08-16] MEDS: FLUoxetine HCL 20 MG CAPSULE (FP) PO SCH (09:45)
[2019-08-16] MEDS: LISINOPRIL 20 MG TABLET (FP) PO SCH (09:45)
[2019-08-16] MEDS: ENOXAPARIN NA (PORCINE) 40 MG/0.4 ML DISP.SYRIN SQ SCH (09:46)
--- NOTE | 2019-08-16 11:07 | PN ---
Progress Note, Physician History of Present Illness: stable no new issues - Current Medication List Current Medications: Active Medications Acetaminophen (Ofirmev Injection -) 1,000 mg IVPB Q6H PRN PRN Reason: PAIN LEVEL 6-10 Aspirin (Ecotrin -) 81 mg PO DAILY [facility] Last Admin: 08/16/19 09:45 Dose: 81 mg Atorvastatin Calcium (Lipitor -) 40 mg PO HS [facility] Last Admin: 08/15/19 22:04 Dose: 40 mg Enoxaparin Sodium (Lovenox -) 40 mg SQ DAILY [facility] Last Admin: 08/16/19 09:46 Dose: 40 mg Fluoxetine HCl (Prozac -) 40 mg PO DAILY [facility] Last Admin: 08/16/19 09:45 Dose: 40 mg Sodium Chloride (Normal Saline -) 1,000 mls @ 100 mls/hr IV ASDIR [facility] Last Admin: 08/15/19 17:00 Dose: 100 mls/hr Levothyroxine Sodium (Synthroid -) 100 mcg PO DAILY@0700 [facility] Last Admin: 08/16/19 06:22 Dose: 100 mcg Lisinopril (Prinivil) 20 mg PO DAILY [facility] Last Admin: 08/16/19 09:45 Dose: 20 mg Metoprolol Tartrate (Lopressor -) 25 mg PO BID [facility] Last Admin: 08/16/19 09:45 Dose: 25 mg Prochlorperazine Maleate (Compazine -) 5 mg PO Q6H PRN PRN Reason: NAUSEA AND/OR VOMITING - Objective Vital Signs: Vital Signs Temperature 98 F 08/16/19 08:57 Pulse Rate 78 08/16/19 08:57 Respiratory Rate 18 08/16/19 09:00 Blood Pressure 140/95 08/16/19 08:57 O2 Sat by Pulse Oximetry (%) 98 08/16/19 09:00 Constitutional: Yes: No Distress, Calm Cardiovascular: Yes: S1, S2 Respiratory: Yes: Regular, CTA Bilaterally Gastrointestinal: Yes: Normal Bowel Sounds, Soft Musculoskeletal: Yes: WNL Extremities: Yes: WNL Neurological: Yes: Alert, Oriented Psychiatric: Yes: Alert, Oriented Labs: CBC, BMP 08/16/19 06:15 08/16/19 06:15 INR, PTT INR 1.03 (0.83-1.09) 08/14/19 12:03 Assessment/Plan nausea vomiting htn hypothyroidism cad leukocytosis plan continue current mgmt wbc stable patient improving
--- NOTE | 2019-08-16 11:34 | PN ---
Teaching Attending Note Name of Resident: Deshaun Wise ATTENDING PHYSICIAN STATEMENT I saw and evaluated the patient. I reviewed the resident's note and discussed the case with the resident. I agree with the resident's findings and plan as documented. SUBJECTIVE: No fever or chills. No BAd pain, no N/V. No diarrhea, no CP or SOB . OBJECTIVE: NAD MMM CV: RRR, no MRG. Lungs: CTAB Abd: soft, minimal discomfort in RLQ, Nl BS. Ext: No edema or erythema on upper or lower extremities. ASSESSMENT AND PLAN: Mrs. Cardona is a pleasant 59 y/o lady with h/o Anxiety, HTN, CAD ( + stress test in 01/22), hyperlipidemia and hypothyroidism, who presented from charge authorizer office due to EKG changes. In ER she was found to have leukocytosis and elevated trop. 1- Leukocytosis: No source of infection. leukocytosis improved with no abx. WBC 12 k today - blood cx are neg to date, will follow 48 hr results - cont to monitor off Abx. - dc IVF . Encourage po hydration 2- Elevated Trop: - cont Bb and statin at increased doses . - cotn lisinopril - out pt stress test . she was informed 3- h/o Hypothyroidism:cont synthroid 4- H/o HTN: cont metoprolol and lisinopril. DC home later today if 48 hr blood cxs remains neg
--- NOTE | 2019-08-16 11:37 | PN ---
Physical Exam: SUBJECTIVE: Patient seen and examined at bedside. No events overnight. No new complaints. OBJECTIVE: Vital Signs Period Temp Pulse Resp BP Sys/Mcginnis Pulse Ox Last 24 Hr 97.9 F-98.2 F 69-81 16-20 140-147/90-98 98-98 GENERAL: The patient is awake, alert, and fully oriented, in no acute distress. HEAD: Normal with no signs of trauma. NECK: Trachea midline, full range of motion, supple. LUNGS: Breath sounds equal, clear to auscultation bilaterally, no wheezes, no crackles, no accessory muscle use. HEART: Regular rate and rhythm, S1, S2 without murmur, rub or gallop. ABDOMEN: Soft, nontender, nondistended, normoactive bowel sounds, no guarding, no rebound, no hepatosplenomegaly, no masses. EXTREMITIES: 2+ pulses, warm, well-perfused, no edema. NEUROLOGICAL: Cranial nerves II through X grossly intact. Normal speech, gait not observed. PSYCH: Normal mood, normal affect. SKIN: Warm, dry, normal turgor, no rashes or lesions noted Laboratory Results - last 24 hr 08/15/19 08/15/19 08/16/19 17:18 22:01 06:15 WBC 12.0 H RBC 5.33 H Hgb 15.2 Hct 44.0 MCV 82.4 MCH 28.5 MCHC 34.6 RDW 13.7 Plt Count 277 MPV 8.8 Sodium Potassium Chloride Carbon Dioxide Anion Gap BUN Creatinine Est GFR (CKD-EPI)AfAm Est GFR (CKD-EPI)NonAf POC Glucometer 115 130 Random Glucose Calcium Phosphorus Magnesium 08/16/19 08/16/19 06:15 06:20 WBC RBC Hgb Hct MCV MCH MCHC RDW Plt Count MPV Sodium 131 L Potassium 3.6 Chloride 98 Carbon Dioxide 23 Anion Gap 9 BUN 9.4 Creatinine 0.5 L Est GFR (CKD-EPI)AfAm 123.65 Est GFR (CKD-EPI)NonAf 106.68 POC Glucometer 110 Random Glucose 107 H Calcium 9.2 Phosphorus 1.9 L Magnesium 1.8 Active Medications Generic Name Dose Route Start Last Admin Trade Name Freq PRN Reason Stop Dose Admin Acetaminophen 1,000 mg 08/14/19 20:00 Ofirmev Injection - IVPB Q6H PRN PAIN LEVEL 6-10 Aspirin 81 mg 08/15/19 10:00 08/16/19 09:45 Ecotrin - PO 81 mg DAILY IWONA Administration Atorvastatin Calcium 40 mg 08/15/19 22:00 08/15/19 22:04 Lipitor - PO 40 mg HS IWONA Administration Enoxaparin Sodium 40 mg 08/15/19 10:00 08/16/19 09:46 Lovenox - SQ 40 mg DAILY IWONA Administration Fluoxetine HCl 40 mg 08/15/19 10:00 08/16/19 09:45 Prozac - PO 40 mg DAILY IWONA Administration Levothyroxine Sodium 100 mcg 08/15/19 07:00 08/16/19 06:22 Synthroid - PO 100 mcg DAILY@0700 IWONA Administration Lisinopril 20 mg 08/15/19 10:00 08/16/19 09:45 Prinivil PO 20 mg DAILY IWONA Administration Metoprolol Tartrate 25 mg 08/15/19 10:50 08/16/19 09:45 Lopressor - PO 25 mg BID IWONA Administration Prochlorperazine Maleate 5 mg 08/14/19 18:14 Compazine - PO Q6H PRN NAUSEA AND/OR VOMITING ASSESSMENT/PLAN: 59F w/ of HTN, HLD, hypothyroidism, chronic anxiety referred from Activity Coordinator( Dr Smith --partner of Dr Childs) for RUQ pain w/ NV, loose stools, and EKG showing abnormal Twaves in the lateral leads. # NSTEMI --possibly demand ischemia 2/2 GI infection - WBC 21 - troponin peak of 1.11 documented. - patient no longer having pain - Cardio(Amadeo) consulted: -cleared for DC -incr Lopressor 25mg BID -increase statin to 40mg HS -outpt cardiology f/u for repeat Lexiscan Myoview to assess severity of CAD # Right-sided abd pain(w/a N-V, loose stools) --unlikely infectious in etiology , NO abx administered -improved today -stool cx, cdiff negative -viral swabs negative -ssx resolved. -BCX negative x 48 hr # chronic Dyslipidemia: - cholesterol 218, LDL 133 - increased home atorvastatin 20mg --> 40mg #Dispo -Patient stable for dc home today. Visit type - Emergency Visit Emergency Visit: Yes ED Registration Date: 08/14/19 Care time: The patient presented to the Emergency Department on the above date and was hospitalized for further evaluation of their emergent condition. - New Patient This patient is new to me today: Yes Date on this admission: 08/17/19 - Critical Care Critical Care patient: No ATTENDING PHYSICIAN STATEMENT I saw and evaluated the patient. I reviewed the resident's note and discussed the case with the resident. I agree with the resident's findings and plan as documented. SUBJECTIVE: OBJECTIVE: ASSESSMENT AND PLAN:
== END 2019-08-16 16:26 | disposition home or self-care (01) | DRG 311 ==
LOC: JER 11:18 → JERBED 14:10 → J4W 18:24
PROVIDERS: ADMIT Internal Medicine; ATTEND Internal Medicine
DX: I24.8 Other forms of acute ischemic heart disease (principal); I10 Essential (primary) hypertension; E78.5 Hyperlipidemia, unspecified; E03.9 Hypothyroidism, unspecified; F41.9 Anxiety disorder, unspecified; F17.210 Nicotine dependence, cigarettes, uncomplicated; R94.31 Abnormal electrocardiogram [ECG] [EKG]; D72.829 Elevated white blood cell count, unspecified; I25.10 Atherosclerotic heart disease of native coronary artery without angina pectoris; K57.90 Diverticulosis of intestine, part unspecified, without perforation or abscess without bleeding; R79.89 Other specified abnormal findings of blood chemistry
CPT/HCPCS: 36415; 71046-TC-FY; 74177-TC; 76705-TC; 80048; 80053; 80061; 81003; 82550; 82962; 83036; 83605; 83690; 83721; 83735; 84100; 84443; 84484; 85025; 85027; 85610; 87040; 87086; 87254; 87804; 87807; 93005; 93010; 93306-TC; 99284-25; J0131; J7030; Q9967